=== PATIENT | male | born 1970 | race Caucasian/White ===

== ENCOUNTER 2017-07-14 11:39 | Inpatient (IN) | payer BC ==
[2017-07-14] MEDS ORDERED: SODIUM CHLORIDE 0.9% 1,000 ML IV STA (11:50)
--- NOTE | 2017-07-14 11:55 | ED ---
General Adult HPI - General Chief complaint: Abdominal Pain Stated complaint: poss bile duct problem Time Seen by Provider: 07/14/17 11:45 Source: patient, RN notes reviewed Mode of arrival: ambulatory Limitations: no limitations - History of Present Illness Initial comments: Patient for 46-year-old male who presents emergency room today with chief complaint of a possible bile duct junction. He states he saw Dr. Luciano today was advised to come the emergency room for further evaluation and imaging. Patient states that he has had some symptoms of pain since his surgery last June. States seems to be happening more often recently. States symptoms come and go. She states she has noticed that he appears jaundiced. Patient denies any other complaints or associated symptoms. Patient denies any recent fever, chills, shortness of breath, chest pain, back pain, vomiting, numbness or tingling, dysuria or hematuria, constipation or diarrhea, headaches or visual changes, or any other complaints. - Related Data Home Medications Medication Instructions Recorded Confirmed Levothyroxine Sodium [Synthroid] 100 mcg PO DAILY 07/14/17 07/14/17 Allergies Allergy/AdvReac Type Severity Reaction Status Date / Time No Known Allergies Allergy Verified 07/14/17 11:50 Review of Systems ROS Statement: Those systems with pertinent positive or pertinent negative responses have been documented in the HPI. ROS Other: All systems not noted in ROS Statement are negative. Past Medical History Past Medical History: Thyroid Disorder History of Any Multi-Drug Resistant Organisms: None Reported Past Surgical History: Cholecystectomy Additional Past Surgical History / Comment(s): benign tumor removed from neck Past Psychological History: No Psychological Hx Reported Smoking Status: Never smoker Past Alcohol Use History: None Reported Past Drug Use History: None Reported General Exam - General Exam Comments Initial Comments: General: The patient is awake and alert, in no distress, and does not appear acutely ill. Eye: Pupils are equal, round and reactive to light, extra-ocular movements are intact. No nystagmus. There is normal conjunctiva bilaterally. No signs of icterus. Ears, nose, mouth and throat: There are moist mucous membranes and no oral lesions. Neck: The neck is supple, there is no tenderness or JVD. Cardiovascular: There is a regular rate and rhythm. No murmur, rub or gallop is appreciated. Respiratory: Lungs are clear to auscultation, respirations are non-labored, breath sounds are equal. No wheezes, stridor, rales, or rhonchi. Gastrointestinal: Soft, non-distended, non-tender abdomen without masses or organomegaly noted. There is no rebound or guarding present. No CVA tenderness. Bowel sounds are unremarkable. Musculoskeletal: Normal ROM, no tenderness. Strength 5/5. Sensation intact. Pulses equal bilaterally 2+. Neurological: A&O x 3. CN II-XII intact, There are no obvious motor or sensory deficits. Coordination appears grossly intact. Speech is normal. Skin: Skin is warm and dry and no rashes or lesions are noted. Psychiatric: Cooperative, appropriate mood & affect, normal judgment. Limitations: no limitations Course Vital Signs 07/14/17 07/14/17 11:41 13:08 Temperature 97.1 F L 97.6 F Pulse Rate 56 L 60 Respiratory 18 16 Rate Blood Pressure 137/88 155/97 O2 Sat by Pulse 98 96 Oximetry Medical Decision Making - Medical Decision Making Patient's a urine emergency room by nurse practitioner for Dr. Luciano. They recommend admitting patient and having ERCP performed tomorrow. Patient's labs been reviewed elevated liver enzymes along with alk phos and bilirubin. Patient currently comfortable in the room. Patient will be admitted. - Lab Data Result diagrams: 07/14/17 12:10 07/14/17 12:10 Lab Results 07/14/17 07/14/17 07/14/17 Range/Units 12:10 12:10 12:10 WBC 4.4 (3.8-10.6) k/uL RBC 4.88 (4.30-5.90) m/uL Hgb 14.6 (13.0-17.5) gm/dL Hct 44.4 (39.0-53.0) % MCV 91.1 (80.0-100.0) fL MCH 29.9 (25.0-35.0) pg MCHC 32.9 (31.0-37.0) g/dL RDW 15.1 (11.5-15.5) % Plt Count 223 (150-450) k/uL Neutrophils % 59 % Lymphocytes % 25 % Monocytes % 8 % Eosinophils % 4 % Basophils % 1 % Neutrophils # 2.6 (1.3-7.7) k/uL Lymphocytes # 1.1 (1.0-4.8) k/uL Monocytes # 0.3 (0-1.0) k/uL Eosinophils # 0.2 (0-0.7) k/uL Basophils # 0.0 (0-0.2) k/uL PT 9.4 (9.0-12.0) sec INR 0.9 (<1.2) APTT 24.3 (22.0-30.0) sec Sodium 141 (137-145) mmol/L Potassium 3.6 (3.5-5.1) mmol/L Chloride 107 (98-107) mmol/L Carbon Dioxide 19 L (22-30) mmol/L Anion Gap 15 mmol/L BUN 15 (9-20) mg/dL Creatinine 0.88 (0.66-1.25) mg/dL Est GFR (MDRD) Af Amer >60 (>60 ml/min/1.73 sqM) Est GFR (MDRD) Non-Af >60 (>60 ml/min/1.73 sqM) Glucose 117 H (74-99) mg/dL Calcium 9.2 (8.4-10.2) mg/dL Total Bilirubin 6.4 H (0.2-1.3) mg/dL AST 203 H (17-59) U/L ALT 493 H (21-72) U/L Alkaline Phosphatase 194 H (38-126) U/L Total Protein 7.6 (6.3-8.2) g/dL Albumin 4.3 (3.5-5.0) g/dL Amylase 60 (30-110) U/L Lipase 80 (23-300) U/L Urine Color Urine Appearance (Clear) Urine pH (5.0-8.0) Ur Specific [place] (1.001-1.035) Urine Protein (Negative) Urine Glucose (UA) (Negative) Urine Ketones (Negative) Urine Blood (Negative) Urine Nitrite (Negative) Urine Bilirubin (Negative) Urine Urobilinogen (<2.0) mg/dL Ur Leukocyte Esterase (Negative) Urine RBC (0-5) /hpf Urine Bacteria (None) /hpf Urine Mucus (None) /hpf 07/14/17 Range/Units 12:10 WBC (3.8-10.6) k/uL RBC (4.30-5.90) m/uL Hgb (13.0-17.5) gm/dL Hct (39.0-53.0) % MCV (80.0-100.0) fL MCH (25.0-35.0) pg MCHC (31.0-37.0) g/dL RDW (11.5-15.5) % Plt Count (150-450) k/uL Neutrophils % % Lymphocytes % % Monocytes % % Eosinophils % % Basophils % % Neutrophils # (1.3-7.7) k/uL Lymphocytes # (1.0-4.8) k/uL Monocytes # (0-1.0) k/uL Eosinophils # (0-0.7) k/uL Basophils # (0-0.2) k/uL PT (9.0-12.0) sec INR (<1.2) APTT (22.0-30.0) sec Sodium (137-145) mmol/L Potassium (3.5-5.1) mmol/L Chloride (98-107) mmol/L Carbon Dioxide (22-30) mmol/L Anion Gap mmol/L BUN (9-20) mg/dL Creatinine (0.66-1.25) mg/dL Est GFR (MDRD) Af Amer (>60 ml/min/1.73 sqM) Est GFR (MDRD) Non-Af (>60 ml/min/1.73 sqM) Glucose (74-99) mg/dL Calcium (8.4-10.2) mg/dL Total Bilirubin (0.2-1.3) mg/dL AST (17-59) U/L ALT (21-72) U/L Alkaline Phosphatase (38-126) U/L Total Protein (6.3-8.2) g/dL Albumin (3.5-5.0) g/dL Amylase (30-110) U/L Lipase (23-300) U/L Urine Color Yellow Urine Appearance Clear (Clear) Urine pH 6.0 (5.0-8.0) Ur Specific [place] 1.005 (1.001-1.035) Urine Protein Negative (Negative) Urine Glucose (UA) Negative (Negative) Urine Ketones Negative (Negative) Urine Blood Trace H (Negative) Urine Nitrite Negative (Negative) Urine Bilirubin 1+ H (Negative) Urine Urobilinogen <2.0 (<2.0) mg/dL Ur Leukocyte Esterase Negative (Negative) Urine RBC 1 (0-5) /hpf Urine Bacteria Rare H (None) /hpf Urine Mucus Rare H (None) /hpf Disposition Clinical Impression: Obstructive jaundice Disposition: ADMITTED IP TO THIS HOSP Condition: Stable Referrals: Johnathan Hinton MD [Primary Care Provider] - 1-2 days Time of Disposition: 13:27
[2017-07-14 12:28] LABS: Appearance,Urine Clear (Clear); Bacteria,Urine Rare /hpf; Bilirubin,Urine 1+ (Negative); Glucose,Urine (UA) Negative (Negative); Ketones,Urine Negative (Negative); Leukocyte Esterase,Urine Negative (Negative); Mucus,Urine Rare /hpf; Nitrite,Urine Negative (Negative); Particle Count 659; Protein,Urine Negative (Negative); RBC,Urine 1 /hpf (0-5); Specific Gravity,Urine 1.005 (1.001-1.035); UA Billing (MACRO vs. MICRO) MICRO; Urobilinogen,Urine <2.0 mg/dL (<2.0)
--- NOTE | 2017-07-14 12:29 | P.CONS ---
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 Postcholecystectomy had several episodes at home where he has had intermittent abdominal pain bloatedness without jaundice. About a week ago developed right upper quadrant abdominal pain with bloatedness darker urine and acholic stools. 4 days ago his coworkers noticed he was more yellow in appearance. He was evaluated at [facility] earlier this week secondary to abdominal pain and elevated liver enzymes. Reported ultrasound was unremarkable and computed tomography scan showed mild biliary ductal dilatation. He was discharged with recommendations to follow up in GI office. He was seen in the GI office this morning by our physician physician assistant. Patient is visibly jaundice sent to the emergency room for further evaluation. Presently there are no labs to review however it has been reported by the GI office PA his total bilirubin was in the 6 range or to discharge from [place]. No history of known liver disorders. No history of hepatitis intravenous drug abuse or alcoholism. No changes in medications. Presently he is without abdominal pain but visibly jaundice. Review of Systems Constitutional: Denies fever, chills, sweats, weight gain, or loss. HEENT: Negative for migraines, blurred vision or loss, earaches, drainage, tinnitus, oral mucosal lesions, dysphagia, or odynophagia. Cardiac: Negative for chest pain, arrhythmias, or palpitation. Respiratory: Negative for shortness of breath, hemoptysis, cough, or sputum production. Gastrointestinal: See HPI for pertinent findings. Genitourinary: Negative for hematuria, urgency, frequency, polyuria, dysuria, or penile discharge. Musculoskeletal: Negative for muscle aches, swelling, arthritis, and arthralgias. Neurologic: Negative for stroke or TIA. Endocrine: Hypothyroidism. Skin: Negative for rash or itching. Psychiatric: Negative history for depression and anxiety All systems: negative (See HPI) Past Medical History Past Medical History: Thyroid Disorder History of Any Multi-Drug Resistant Organisms: None Reported Past Surgical History: Cholecystectomy Additional Past Surgical History / Comment(s): benign tumor removed from neck Past Psychological History: No Psychological Hx Reported Smoking Status: Never smoker Past Alcohol Use History: None Reported Past Drug Use History: None Reported Medications and Allergies Home Medications Medication Instructions Recorded Confirmed Type Levothyroxine Sodium [Synthroid] 100 mcg PO DAILY 07/14/17 07/14/17 History Allergies Allergy/AdvReac Type Severity Reaction Status Date / Time No Known Allergies Allergy Verified 07/14/17 11:50 Physical Exam Vitals: Vital Signs Temp Pulse Resp BP Pulse Ox 07/14/17 11:41 97.1 F L 56 L 18 137/88 98 Intake and Output 07/13/17 07/14/17 07/14/17 22:59 06:59 14:59 Intake Total 1000 Balance 1000 Intake: IV 1000 Invasive Line 1 1000 Other: Weight 97.976 kg Patient Weight 07/15/17 06:59 Weight 97.976 kg General appearance: The patient is alert, oriented, in no acute distress. Visibly jaundice HET: Head is normocephalic and atraumatic. Pupils are equal and reactive. Sclerae icterus. Oropharynx is clear without lesions. Neck: Supple without lymphadenopathy. Trachea midline. Heart: S1 S2. Regular rate and rhythm. Lungs: No crackles or wheezes are heard. Abdomen: Soft, nontender, nondistended with bowel sounds. No peritoneal signs. No palpable organomegaly or masses. Extremities: Normal skin color and turgor. No cyanosis, rash, ulceration, clubbing, or edema. Radial and pedal pulses are 2/4 bilaterally. Neurological: No focal deficits. Strength and sensation are grossly intact. Assessment and Plan (1) Obstructive jaundice Narrative/Plan: Suspect choledocholithiasis with history of cholecystectomy for cholelithiasis a year ago with new onset of jaundice right upper quadrant abdominal pain elevated liver enzymes and CT imaging reported mild biliary ductal dilatation. Status: Acute Plan: 1. ERCP scheduled tomorrow. 2. Full liquid diet tonight followed by NPO after midnight. 3. IV hydration. 4. Hepatitis panel. PT/INR. Baseline CMP/CBC. The applied science and technologies dean has discussed the risks, benefits and alternative therapies for the above-mentioned procedure and for both sedation/analgesia as well as necessary blood product administration, if indicated, as they pertain to this patient. The patient has indicated understanding and acceptance of the risks and procedures discussed. Thank you for this kind referral and the opportunity to participate in the care of your patient. This consultation was discussed with Dr. López. The impression and plan of care have been directed as dictated.
[2017-07-14 12:31] LABS: ALT 493 U/L (21-72); AST 203 U/L (17-59); Alkaline Phosphatase 194 U/L (38-126); Amylase 60 U/L (30-110); Anion Gap 15 mmol/L; Blood Urea Nitrogen 15 mg/dL (9-20); Calcium 9.2 mg/dL (8.4-10.2); Carbon Dioxide 19 mmol/L (22-30); Chloride 107 mmol/L (98-107); Glucose 117 mg/dL (74-99); Non-African American GFR(MDRD) >60 (>60 ml/min/1.73 sqM); Potassium 3.6 mmol/L (3.5-5.1); Sodium 141 mmol/L (137-145); Total Bilirubin 6.4 mg/dL (0.2-1.3); Total Protein 7.6 g/dL (6.3-8.2)
[2017-07-14 12:41] LABS: Basophils % (A) 1 %; CH 30.9; CHCM 34.2; Eosinophils # (A) 0.2 k/uL (0-0.7); Eosinophils % (A) 4 %; HCT 44.4 % (39.0-53.0); HDW 2.76; HGB 14.6 gm/dL (13.0-17.5); INR 0.9 (<1.2); Luc # (Auto) 0.13; Luc % (Auto) 3; Lymphocytes # (A) 1.1 k/uL (1.0-4.8); Lymphocytes % (A) 25 %; MCH 29.9 pg (25.0-35.0); MCHC 32.9 g/dL (31.0-37.0); MCV 91.1 fL (80.0-100.0); Mean Platelet Volume 7.3; Monocytes # (A) 0.3 k/uL (0-1.0); Monocytes % (A) 8 %; Neutrophils # (A) 2.6 k/uL (1.3-7.7); Neutrophils % (A) 59 %; Partial Thromboplastin Time 24.3 sec (22.0-30.0); Prothrombin Time 9.4 sec (9.0-12.0); RBC 4.88 m/uL (4.30-5.90); RDW 15.1 % (11.5-15.5); WBC 4.4 k/uL (3.8-10.6); WBC (Perox) 4.37
[2017-07-14 13:09] VITALS: RESP 16
[2017-07-14] MEDS ORDERED: HYDROmorphone 1 MG/ML 1 ML SYRINGE IV PRN (13:27)
[2017-07-14] MEDS ORDERED: ONDANSETRON 4 MG/2 ML VIAL IVP PRN (13:27)
[2017-07-14] MEDS ORDERED: NALOXONE 0.4 MG/ML 1 ML VIAL IV PRN (13:27)
[2017-07-14] MEDS ORDERED: ACETAMINOPHEN TAB 325 MG TAB PO PRN (13:27)
[2017-07-14] MEDS ORDERED: HYDROcodone/APAP 5-325MG 1 EACH TAB PO PRN (13:27)
[2017-07-14 14:24] VITALS: BMI 40.8
--- NOTE | 2017-07-14 22:07 | P.HPIM ---
History of Present Illness H&P Date: 07/14/17 Chief Complaint: right upper quadrant pain, jaundiced This is a 46-year-old male patient of Dr. Johnathan Hinton with chronic stable medical conditions that include GERD, osteoarthritis, thyroid disease, who presented to the emergency department after being seen in the office by Dr. Luciano and his PA for abdominal pain and yellowing of the skin. Symptoms began about a week ago developed right upper quadrant pain with bloatedness dark urine and acholic stools. About 4 days ago his coworkers had noticed he became was even more yellow in appearance. Went to [facility] with complaints of abdominal pain and elevated liver enzymes, ultrasound was unremarkable and computed tomography scan showed mild biliary duct dilatation. Patient was sent home with recommendations to follow up in the GI office. Patient's history is negative for liver disease, hepatitis, IV drug abuse, alcoholism. No recent medication changes or additions. 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 History of Any Multi-Drug Resistant Organisms: None Reported Past Surgical History: Cholecystectomy Additional Past Surgical History / Comment(s): 07/2016 cholecystectomy, benign tumor removed from neck at age 11 yrs. Past Anesthesia/Blood Transfusion Reactions: No Reported Reaction Past Psychological History: No Psychological Hx Reported Additional Psychological History / Comment(s): Pt resides alone. He is independent. Smoking Status: Never smoker Past Alcohol Use History: None Reported Past Drug Use History: None Reported - Past Family History Father Family Medical History: Myocardial Infarction ([place]) Additional Family Medical History / Comment(s): Father of a [place] at the age of 50 yrs. Mother Additional Family Medical History / Comment(s): Mother has "heart issues and gallbladder disease." She is 85 yrs old. Medications and Allergies Home Medications Medication Instructions Recorded Confirmed Type Levothyroxine Sodium [Synthroid] 100 mcg PO DAILY 07/14/17 07/14/17 History Allergies Allergy/AdvReac Type Severity Reaction Status Date / Time No Known Allergies Allergy Verified 07/14/17 11:50 Physical Exam Vitals: Vital Signs Temp Pulse Pulse Resp BP BP Pulse Ox 07/14/17 19:30 98.3 F 53 L 16 134/78 95 07/14/17 15:00 97.5 F L 59 L 16 130/78 99 07/14/17 13:48 97.5 F L 55 L 16 150/85 99 07/14/17 13:08 97.6 F 60 16 155/97 96 07/14/17 11:41 97.1 F L 56 L 18 137/88 98 Intake and Output 07/14/17 07/14/17 07/14/17 06:59 14:59 22:59 Intake Total 1000 Balance 1000 Intake: IV 1000 Invasive Line 1 1000 Other: Weight 97.976 kg Patient Weight 07/15/17 06:59 Weight 97.976 kg VITAL SIGNS: [98.3, pulse 53, respirations 16, blood pressure 134/78, oxygen saturation 95% on room air. BMI 40.8 kg/m] GENERAL: [Average built, sitting up, comfortable]. EYES: [Pupils equal. Conjunctiva icteric l. HEENT: [External appearance of nose and ears normal, oral cavity grossly normal] . NECK: [JVD not raised; masses not palpable]. HEART: [First and second heart sounds are normal; no edema]. LUNGS:[ Respiratory rate normal; clear to auscultation]. ABDOMEN: [Soft, bloated appearing nontender, liver spleen not palpable, no masses palpable]. LYMPHATICS: [No lymph nodes palpable in the axilla and neck]. PSYCH: [Alert and oriented x3; mood and affect sudarshan]l. INTEGUMENT: Widespread yellowing of most all skin surfaces NEUROLOGICAL: [Cranial nerves grossly intact; no facial asymmetry, power and sensation grossly intact]. Results CBC & Chem 7: 07/14/17 12:10 07/14/17 12:10 Labs: Abnormal Lab Results - Last 24 Hours (Table) 07/14/17 07/14/17 Range/Units 12:10 12:10 Carbon Dioxide 19 L (22-30) mmol/L Glucose 117 H (74-99) mg/dL Total Bilirubin 6.4 H (0.2-1.3) mg/dL AST 203 H (17-59) U/L ALT 493 H (21-72) U/L Alkaline Phosphatase 194 H (38-126) U/L Urine Blood Trace H (Negative) Urine Bilirubin 1+ H (Negative) Urine Bacteria Rare H (None) /hpf Urine Mucus Rare H (None) /hpf Thrombosis Risk Factor Assmnt - Choose All That Apply Any of the Below Risk Factors Present?: Yes Each Factor Represents 1 point: Age 41-60 years, Obesity (BMI >25) Other Risk Factors: No Other congenital or acquired thrombophilia - If yes, enter type in comment: No Thrombosis Risk Factor Assessment Total Risk Factor Score: 2 Thrombosis Risk Factor Assessment Level: Low Risk Assessment and Plan Plan: ASSESSMENT: -Possible choledocholithiasis in a patient with a history of cholecystectomy for cholelithiasis about a year ago -Hyperbilirubinemia likely due to cholelithiasis -New-onset jaundice in a patient with history of cholelithiasis, no history of any type liver disease. -Osteoarthritis in the right wrist -GERD -Thyroid disorder PLAN: Home meds reordered IV fluids ordered GI consulted, nothing by mouth after midnight ERCP scheduled for tomorrow. Plan of care discussed with patient the bedside he is in agreement, we'll continue to follow closely. ROOM SERVICE CLERK STATEMENT: Patient was seen and examined by nurse practitioner Katalina Herbert and all elements of the case discussed with attending Dr. Koo.
[2017-07-14] MEDS: diphenhydrAMINE 2% CREAM 28.4 GM TUBE TOPICAL SCH (22:37)
[2017-07-15] MEDS ORDERED: LEVOTHYROXINE 100 MCG TAB PO SCH (06:30)
[2017-07-15 08:25] LABS: Basophils # (A) 0.1 k/uL (0-0.2); Basophils % (A) 1 %; CH 29.6; CHCM 31.6; Eosinophils # (A) 0.2 k/uL (0-0.7); Eosinophils % (A) 5 %; HCT 45.8 % (39.0-53.0); HDW 2.67; HGB 14.4 gm/dL (13.0-17.5); Luc # (Auto) 0.15; Luc % (Auto) 3; Lymphocytes # (A) 1.2 k/uL (1.0-4.8); Lymphocytes % (A) 25 %; MCH 29.5 pg (25.0-35.0); MCHC 31.4 g/dL (31.0-37.0); MCV 94.2 fL (80.0-100.0); Mean Platelet Volume 6.7; Monocytes # (A) 0.3 k/uL (0-1.0); Monocytes % (A) 7 %; Neutrophils # (A) 2.8 k/uL (1.3-7.7); Neutrophils % (A) 59 %; RBC 4.86 m/uL (4.30-5.90); RDW 14.1 % (11.5-15.5); WBC 4.8 k/uL (3.8-10.6); WBC (Perox) 4.94
[2017-07-15 08:42] LABS: ALT 542 U/L (21-72); AST 318 U/L (17-59); Alkaline Phosphatase 219 U/L (38-126); Anion Gap 12 mmol/L; Blood Urea Nitrogen 10 mg/dL (9-20); Calcium 9.4 mg/dL (8.4-10.2); Carbon Dioxide 22 mmol/L (22-30); Chloride 107 mmol/L (98-107); Glucose 92 mg/dL (74-99); Non-African American GFR(MDRD) >60 (>60 ml/min/1.73 sqM); Potassium 4.3 mmol/L (3.5-5.1); Sodium 141 mmol/L (137-145); Total Bilirubin 8.3 mg/dL (0.2-1.3); Total Protein 7.4 g/dL (6.3-8.2)
[2017-07-15] MEDS ORDERED: INDOMETHACIN 50MG SUPPOSITORY RECTAL ONE (09:00)
[2017-07-15] MEDS ORDERED: LEVOFLOXACIN 500MG-D5W PMX 500 MG in DEXTROSE/WATER 1 100ML.BAG IVPB ONE (09:00)
[2017-07-15 10:34] VITALS: BP 128/85; PULSE 52; TEMP 97.8
[2017-07-15] MEDS: diphenhydrAMINE 2% CREAM 28.4 GM TUBE TOPICAL SCH ×2 (13:17→17:26)
[2017-07-15] MEDS ORDERED: IV FLUID CONTINUATION 600 ML IV ONE (13:38)
[2017-07-15] MEDS ORDERED: GLYCOPYRROLATE 0.2 MG/ML 2 ML VIAL ONE (13:40)
[2017-07-15] MEDS ORDERED: LIDOCAINE 1% INJ 10MG/ML (20 ML MDV) ONE (13:40)
[2017-07-15] MEDS ORDERED: MIDAZOLAM 2 MG/2 ML VIAL ONE (13:40)
[2017-07-15] MEDS ORDERED: fentaNYL (PF) 50 MCG/ML 2 ML AMP ONE (13:40)
[2017-07-15] MEDS ORDERED: GLUCAGON 1 MG/ML VIAL ONE (13:40)
[2017-07-15] MEDS ORDERED: PROPOFOL 10 MG/ML 20 ML VIAL IV ONE (13:40)
[2017-07-15] MEDS ORDERED: KETAMINE 10 MG/ML 20 ML VIAL ONE (13:40)
--- NOTE | 2017-07-15 14:50 | P.PCN ---
Date of Procedure: 07/15/17 Procedure(s) Performed: Brief history: Patient is a 46 year-old pleasant white male scheduled for an ERCP as part of evaluation of abdominal pain and elevated serum transaminases, jaundice for the last 7 days' duration. He was admitted to [facility] and was noted to have bilirubin of 6 with elevated serum transaminases and a CT of the abdomen done 2 days ago showed evidence of mild biliary ductal dilation. He is status post gallbladder surgery 1 year ago for symptomatically gallstones. Because of the clinical suspicion for CBD stones he scheduled for an ERCP today. Procedure performed: Attempted ERCP, normal pancreatogram Preoperative diagnoses: Obstructive jaundice, elevated LFTs and right upper quadrant abdominal pain of 1 week duration IV sedation per anesthesia: Procedure: After informed consent was obtained from the patient and after the risks benefits and complications including bleeding perforation and pancreatitis explained in detail the patient was brought into the endoscopy unit. The patient was placed in prone position and IV conscious sedation was administered by anesthesia under continuous monitoring. The Olympus side-viewing duodenoscope was then inserted into the mouth and esophagus intubated without any difficulty. The scope was gradually advanced into the stomach and duodenum. The major papilla was identified without any difficulty. Initial cannulation resulted in opacification of the pancreatic duct that appeared normal. Subsequently despite multiple times I was not able to cannulate the common bile duct. I used a guidewire technique as well as an autotome and despite this I was not able to cannulate the common bile duct. At this time I decided to terminate the procedure. Patient tolerated the procedure well. Impression: 1. Normal-appearing pancreatic duct 2. Unsuccessful cannulation of the common bile duct despite multiple attempts and using guidewire technique. Recommendations: The findings of this examination were discussed with the patient as well as a family. Since ERCP could not be accomplished, I discussed with the patient's family and this time will transfer him to a tertiary center.
[2017-07-15] MEDS ORDERED: IOHEXOL 300 MG/ML 50 ML BOTTLE MISCELLANE ONE (14:59)
--- NOTE | 2017-07-15 15:06 | P.PN ---
Progress Note - Text DATE OF SERVICE: 07/15/2017 PRESENTING COMPLAINT: Right upper quadrant pain, jaundice HISTORY OF PRESENT ILLNESS: 46-year-old male who presented after being seen in the office by Dr. Boland and his PA for abdominal pain and yellowing of the skin. Symptoms began about a week ago along with right upper quadrant pain and bloatedness, dark urine, acholic stools. A few days ago his coworkers noticed his skin had become even more yellow in appearance. Evaluated at an outside hospital computed tomography scan showed mild biliary duct dilatation, sent home with recommendations to follow-up in GI office. INTERVAL HISTORY: 07/15/2017: Patient sitting up in bed, anxious appearing, awaiting his ERCP. REVIEW OF SYSTEMS: Done for constitutional ,cardiovascular, GI, pulmonary with relevant findings as above. CURRENT MEDICATIONS [place], Dilaudid, Synthroid, PHYSICAL EXAM VITAL SIGNS: Temperature 97.8, pulse 52, respiratory rate 16, blood pressure 128/85, oxygen saturation 96% on room air. GENERAL APPEARANCE: . Sitting up in bed, appears anxious. EYES: Pupils equal. Conjunctiva icteric NECK: JVD not raised. Mass not palpable. RESPIRATORY: Respiratory effort normal. Lungs clear to auscultation. CARDIOVASCULAR: First and second sounds normal. No edema. ABDOMEN: Soft. Liver and spleen not palpable. Right upper quadrant tenderness. No mass palpable. PSYCHIATRY: Alert and oriented x3. Mood and affect INTEGUMENT: Yellowing of the skin INVESTIGATIONS: Total bilirubin 8.3, AST 18, ALTs 542, alkaline phosphatase 219. ERCP: Normal-appearing pancreatic duct, unsuccessful cannulation of the common bile duct despite multiple attempts using guidewire technique. ASSESSMENT: -Possible choledocholithiasis in a patient with a history of cholecystectomy for cholelithiasis about a year ago -Hyperbilirubinemia likely due to cholelithiasis -New-onset jaundice in a patient with history of cholelithiasis, no history of any type liver disease. -Osteoarthritis in the right wrist -GERD -Thyroid disorder PLAN: Liver enzymes continue to climb, ERCP unsuccessful today, GI wishes for the patient to be transferred to tertiary care center discussed with the patient and family and they're in agreement. COOK MANAGER statement: Patient was seen and examined by nurse practitioner Katalina Herbert and all elements of the case discussed with attending Dr. Koo
--- NOTE | 2017-07-15 17:52 | DS ---
DISCHARGE SUMMARY DATE OF ADMISSION: 07/14/2017. DATE OF DISCHARGE: 07/15/2017 FINAL DIAGNOSES: 1. Suspected common bile duct stone in the remnant causing acute presentation. 2. Gastroesophageal reflux disease. 3. Hypothyroidism. 4. Hyperbilirubinemia. HOSPITAL COURSE: This patient had prior cholecystectomy presented with increasing abdominal pain was found to have a bilirubin of 6.4. Ultrasound done at outside facility showed dilated common bile duct. Dr. López attempted ERCP that was unsuccessful. Bilirubin did creep up from 6.4 to 8.3. Hence, patient being transferred to [facility]. I spoke today to the patient and his sister and both are agreeable to same. I also spoke to Dr. López at length. Patient having some nausea. EXAMINATION: On exam, lungs are clear. CARDIOVASCULAR: First and second sounds normal. Some upper abdominal pain. INVESTIGATIONS: Bilirubin 8.3, AST 318. ALT 542. White count was normal. Afebrile. HOME MEDICATIONS: Synthroid 100 mcg a day. DISPOSITION: [address] TRANSFER PROCESS: I spoke to Dr. Larry Bang, Internal Medicine accepting physician at [facility] and patient will be transferred there with a consult to GI and possible surgery. Discharge planning more than 35 minutes MMODL / IJN: [id number] /
[2017-07-15] MEDS ORDERED: ENOXAPARIN 40 MG/0.4 ML SYRINGE SQ SCH (21:00)
== END 2017-07-15 18:01 | disposition short-term general hospital (02) | DRG 446 ==
LOC: EC 11:39 → 3SUR 13:37
PROVIDERS: ADMIT Hospitalist; ATTEND Hospitalist
PROC: BF181ZZ Fluoroscopy of Pancreatic Ducts using Low Osmolar Contrast (ICD-10-PCS; principal; 2017-07-15 15:00)
PROC: 0FJD8ZZ Inspection of Pancreatic Duct, Via Natural or Artificial Opening Endoscopic (ICD-10-PCS; principal; 2017-07-15 15:00)
DX: K80.50 Calculus of bile duct without cholangitis or cholecystitis without obstruction (principal); E03.9 Hypothyroidism, unspecified; K21.9 Gastro-esophageal reflux disease without esophagitis; M19.91 Primary osteoarthritis, unspecified site; Z90.49 Acquired absence of other specified parts of digestive tract; Z79.899 Other long term (current) drug therapy
CPT/HCPCS: 36415; 43260; 80053; 80074; 81001; 82150; 83690; 85025; 85610; 85730; 96360; 96361; 99285

== ENCOUNTER 2020-04-05 15:59 | Emergency (ER) | payer BC ==
[2020-04-05 16:07] VITALS: TEMP 98.2
[2020-04-05] MEDS ORDERED: RX INFO: IV CONTRAST WAS GIVEN 1 EACH MISC MISCELLANE PRN (16:26)
[2020-04-05] MEDS ORDERED: ASPIRIN 81 MG PO STA (16:26)
[2020-04-05 16:39] LABS: Basophils % (A) 0 %; Eosinophils # (A) 0.3 k/uL (0-0.7); Eosinophils % (A) 3 %; HCT 43.3 % (39.0-53.0); HGB 14.6 gm/dL (13.0-17.5); Lymphocytes # (A) 1.4 k/uL (1.0-4.8); Lymphocytes % (A) 19 %; MCH 29.5 pg (25.0-35.0); MCHC 33.7 g/dL (31.0-37.0); MCV 87.6 fL (80.0-100.0); Mean Platelet Volume 6.7; Monocytes # (A) 0.5 k/uL (0-1.0); Monocytes % (A) 6 %; Neutrophils # (A) 5.3 k/uL (1.3-7.7); Neutrophils % (A) 69 %; Platelet Count 253 k/uL (150-450); RBC 4.94 m/uL (4.30-5.90); RDW 12.6 % (11.5-15.5); WBC 7.6 k/uL (3.8-10.6)
[2020-04-05 16:50] LABS: INR 0.9 (<1.2); Prothrombin Time 9.5 sec (9.0-12.0)
[2020-04-05 16:51] LABS: ALT 22 U/L (4-49); AST 28 U/L (17-59); African American GFR (CKD) >90 (>60 ml/min/1.73 sqM); Albumin 4.8 g/dL (3.5-5.0); Alkaline Phosphatase 70 U/L (38-126); Anion Gap 12 mmol/L; Blood Urea Nitrogen 19 mg/dL (9-20); Calcium 9.3 mg/dL (8.4-10.2); Carbon Dioxide 20 mmol/L (22-30); Chloride 106 mmol/L (98-107); Glucose 118 mg/dL (74-99); Magnesium 1.9 mg/dL (1.6-2.3); Non-African American GFR(CKD) >90 (>60 ml/min/1.73 sqM); Potassium 4.1 mmol/L (3.5-5.1); Sodium 138 mmol/L (137-145); Total Bilirubin 0.3 mg/dL (0.2-1.3); Total Protein 7.7 g/dL (6.3-8.2)
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
--- NOTE | 2020-04-05 17:34 | CT ---
EXAMINATION TYPE: CT chest w con DATE OF EXAM: 04/05/2020 COMPARISON: None HISTORY: Left sided arm numbness and chest pain. CT DLP: 766.5 mGycm Automated exposure control for dose reduction was used. CONTRAST: Performed with IV Contrast, patient injected with 100 mL of Isovue 300. Images were obtained from the thoracic inlet to the diaphragm with IV contrast. There is no pleural effusion. Heart size is normal. There is no pericardial effusion. The lungs are c lear of infiltrate. There is no evidence of a pulmonary mass. There are no hilar masses. There is no mediastinal adenopathy. Thoracic aorta appears normal. Thoracic spine is intact. Sternum is intact. There is no evidence of a fracture. Upper abdominal soft tissues are intact. IMPRESSION: Negative CT scan of the chest.
[2020-04-05 17:39] VITALS: BP 141/98; PULSE 70; RESP 16
--- NOTE | 2020-04-05 17:43 | CT ---
EXAMINATION TYPE: CT brain wo con DATE OF EXAM: 04/05/2020 COMPARISON: None HISTORY: Left sided arm numbness and chest pain. CT DLP: 1103 mGycm Automated exposure control for dose reduction was used. Ventricles have normal size. There is no mass effect nor midline shift. There is no sign of intracran ial hemorrhage. There is prominent sulcus involving the right frontal lobe at the frontal lobe convexity. This could be focal encephalomalacia and old infarct. There is apparent old right frontal craniotomy defect.. Th ere is mucosal thickening in the sphenoid sinus. I see no focal bone destruction. IMPRESSION: Right frontal lobe hypodensity could relate to small old cortical infarct or posttraumatic encephalom alacia. No acute intracranial abnormality.
== END 2020-04-05 19:04 | disposition left against medical advice (07) ==
LOC: EC 15:59
DX: R07.9 Chest pain, unspecified (principal); R27.0 Ataxia, unspecified; R10.13 Epigastric pain; R20.0 Anesthesia of skin; E07.9 Disorder of thyroid, unspecified; Z79.890 Hormone replacement therapy; Z82.49 Family history of ischemic heart disease and other diseases of the circulatory system; Z90.49 Acquired absence of other specified parts of digestive tract; Z53.20 Procedure and treatment not carried out because of patient's decision for unspecified reasons
CPT/HCPCS: 36415; 83880; 80053; 83690; 83735; 84484; 85025; 85610; 85730; 70450; 71260; 99285; Q9967

== ENCOUNTER → 2020-08-02 | Outpatient (CLI) | payer OTHER ==
--- NOTE | 2020-08-02 16:53 | MR ---
EXAMINATION TYPE: MR cervical spine wo con DATE OF EXAM: 08/02/2020 COMPARISON: None HISTORY: Cervicalgia, disc degeneration Multiplanar multiecho imaging of the cervical spine was performed with no contrast. Normal alignment. There is narrowing of disc spaces throughout the cervical spine with some decreased signal in the disks. There is posterior small disc herniation at C3-4 with some mild narrowing of th e spinal canal. Canal measures 6.5 mm. I see no edema in the cord. The brainstem is intact. There is broad-based C6-7 posterior disc herniation. This extends slightly to the right side. There is no sign ificant spinal stenosis at C6-7. I see no bony destructive process. There is no cervical paraspinal m ass. Posterior elements are intact. IMPRESSION: Small posterior disc herniation at C3-4 with a mild relative spinal stenosis. Posterior central and right side C6-7 disc herniation without significant spinal stenosis. Degenerati ve disc changes. No fracture seen.
== END | disposition home or self-care (01) ==
LOC: RADMRIMAIN 11:43
PROVIDERS: ATTEND Nurse Practitioner Family
DX: M48.02 Spinal stenosis, cervical region (principal); M50.21 Other cervical disc displacement, high cervical region; M47.812 Spondylosis without myelopathy or radiculopathy, cervical region
CPT/HCPCS: 72141

== ENCOUNTER → 2022-08-09 | Outpatient (CLI) | payer OTHER | END | disposition home or self-care (01) | LOC: LABPAT 10:23 | PROVIDERS: ATTEND Orthopaedic Surgery | DX: Z01.812 Encounter for preprocedural laboratory examination (principal); M47.812 Spondylosis without myelopathy or radiculopathy, cervical region; M48.02 Spinal stenosis, cervical region; Z22.322 Carrier or suspected carrier of Methicillin resistant Staphylococcus aureus | CPT/HCPCS: 87070 ==

== ENCOUNTER 2022-08-17 08:17 | Observation (INO) | payer OTHER ==
[2022-08-16 10:09] VITALS: BMI 35.3
--- NOTE | 2022-08-17 06:11 | P.HPOR ---
History of Present Illness H&P Date: 08/09/22 .D:Date: 08/09/22 : 09:38am .T:Title: [facility] History and Physical Date of :[birth year] Age: 51 year Height: 5'10" Weight: 225 lbs BMI: 32.28 kg/m2 Occupation: Unemployed VAS: 7 CHIEF COMPLAINT: Cervical pain arm pain weakness DOI:None DOS: None Duration of current treatment regiment: 6 months HISTORY: Xrays New xrays taken in office Trauma or injury No Work-Related No Pain description burning, sharp. Location posterior Patient notes that their pain radiates to bilateral upper extremities(R>L) Activity Modification yes Hand Dominance right TREATMENTS COMPLETED: 6 weeks of PT completed? Month and Year of last PT date? 01/2022 Yes How many sessions? 12 Did it help? No Physician recommended home exercise completed? Duration of HEP course: Current yes Patient has trialed the physician directed home exercise program for (without) relief of their symptoms. Medications yes List: None current. Alternative interventions Chiropractic: No Massage therapy: No R.I.C.E: yes , heat and ice without relief Brace: No Injections Yes (I 02/2022) How many? 1 Did they help? No RFA: No SUBJECTIVE: Mr. Buckner returns to the office for a pre-operative recheck of their planned C3-C7 ACDF. Since the time of the last appointment the patient reports no improvements to his symptoms, stating continued cervical pain with bilateral upper extremity radiculopathy. Overall the patient has seen a progressive increase in symptoms since their onset. Mr. Buckner symptoms are exacerbated with anything involving flexion/extension and weightlifting with the upper extremities, due to this they notes that it is increasingly difficult for Mr. Jeremiah hutchinson to complete many of their daily tasks. Patient is having severe sleep disturbances as well due to their ongoing pain and associated symptoms. Regarding treatments, the patient has previously trialed all abovementioned treatment modalities without relief. Patient denies trialing any other modalities at this time. Otherwise the patient denies any f/c/sob/cp, no incision concerns, no bladder or bowel retention/incontinence, no perineal numbness/tingling, and ambulates independently. HPI: Mr. Buckner last returned to the office on 06/17/2022 for an evaluation of their cervical spine. Patient reports a burning, sharp cervical pain ongoing for 3 years that has worsened over the last year with no known injury or trauma to indicate an exact onset of their symptoms. In addition to their cervical pain, they do report that it radiates into the bilateral upper extremities, associated with numbness and tingling through the hands diffusely (right worse than left). Overall the patient has seen a progressive increase in symptoms since their onset. Mr. Buckner symptoms are exacerbated with most daily activities, due to this they notes that it is increasingly difficult for Mr. Buckner to complete many of their daily tasks. Patient is having severe sleep disturbances as well due to their ongoing pain and associated symptoms. Regarding treatments, the patient has previously trialed formal physical therapy, home exercises, heat/ice, and injection all without relief pf his symptoms. Patient denies trialing any other modalities at this time. For their symptoms, the patient denies taking analgesics/anticoagulants/narcotics/JOSE ROBERTO-analogs. Otherwise the patient denies any f/c/sob/cp, no incision concerns, no bladder or bowel retention/incontinence, no perineal numbness/tingling, and ambulates independently. The patients' past social, medical, family, surgical history, as well as review of systems, have been reviewed. Please refer to the Neurosurgery History and Physical form that has been scanned in to our electronic medical record system. 16 points review of systems completed and as stated in HPI, all other systems reviewed are negative. Social History: Reviewed, see appropriate section of the chart for details. P3 Social History: Smoking: former smoker P3 Marijuna daily Alcohol: none P3 Family History: Reviewed, see appropriate section of the chart for details. P2 Past Medical History: Reviewed, see appropriate section of the chart for details. P1 Current Medications: The patient is on no medications PHYSICAL EXAMINATION: General: Awake, alert, appropriate for age, in no acute distress. HEENT: No unusual neck masses around region of lateral neck triangle, thyroid, supraclavicular groove Heart: Regular rate and rhythm, normal S1, S2 and no murmur/gallop. Lungs: Clear to auscultation bilaterally with no use of accessory muscles. Extremities: Skin warm and dry without acute lesions, coloration, temperature, skin intact, no tenderness or erythema Integument: Hairy patches: ABSENT Dorsal skin dimples: ABSENT Cafe au lait spots: ABSENT Surgical incisions: NONE Palpation: Please see Pain drawing on Intake sheet for further detail. Midline spinal tenderness: No E6 Cervical Tenderness: Yes E6 Paralumbar tenderness: No E6 Parathoracic tenderness: No E6 Buttocks tenderness: No E6 Sacroiliac Tenderness: No POSTURAL and MUSCULO-SKELETAL EVALUATION: Coronal Balance: NEUTRAL Recumbent testing: Patient is able to lay flat on back Sagittal Balance: NEUTRAL Shoulder Profile: LEVEL Pelvic Girdle: LEVEL Neck ROM: RESTRICTED Lumbar ROM: RESTRICTED Shoulder ROM: Symmetrical Hip ROM: Symmetrical Knee ROM: Symmetrical Hands: Normal appearance, symmetrical Feet: Normal appearance, Symmetrical VASCULAR STATUS : LEFT RIGHT Wrist Pulses INTACT INTACT Pedal Pulses (Dors. pedis & post.tibialis) INTACT INTACT Color NORMAL NORMAL Edema Absent Absent NEUROLOGIC EXAMINATION: Mental Status:Awake and alert, fully oriented, with normal attention, concentra tion and memory, and fluent, appropriate speech. Cranial Nerves: I: Olfactory not tested. II: Visual acuity normal, no visual field deficit noted with confrontation. III,IV: Normal pupillary reflexes & intact extraocular movements without nystagmus. V,: Intact symmetrical facial sensation. VII: Intact symmetrical facial motor movement VIII: Hearing intact. IX,X: Intact gag, swallow, & normal voice. XI: Sternocleidomastoid, trapezius function intact. XII: Tongue midline with normal movements. L'hermitte's Sign: Negative / absent Spurling'Sign: Absent bilaterally. Cubital percussion test: Absent bilaterally. Hutchison-Tinel sign - Carpal region: Absent bilaterally. Straight Leg Raising: Absent bilaterally. Crossed straight leg raise: negative O8 MOTOR EXAM (0-5/5, N/T) UPPER EXTREMITY Shoulder Abduction Biceps Triceps Wrist Extension Hand Intrinsics Associate Drafter Right 4-/5 5/5 5/5 5/5 4-/5 4-/5 Left 4/5 5/5 5/5 5/5 4/5 4/5 LOWER EXTREMITY Hip Flexion Knee Extension Knee Flexion DF PF EHL FHL Right 5/5 5/5 5/5 5/5 5/5 4+/5 4+/5 Left 5/5 5/5 5/5 5/5 5/5 4+/5 4+/5 REFLEXES(0-4/2, NT)Upper ExtremityLower Extremity Right 2 2 Left 2 2 Pathological Reflexes RIGHT LEFT Hutchison's Absent Absent Clonus Absent Absent Babinski Absent Absent # Indicates mechanical impairment Muscle appearance: Symmetrical, without signs of atrophy or dystrophy. Sensory system (0-4, N/T) Test type RU ARELY RL LL Joint-Position 2 2 2 2 Vibration 2 2 2 2 Pain & LT sense 2 2 2 2 Dermatomal Deficit: None None None None Gait and Functional Evaluation: Ambulatory aids: Independent Romberg's test: positive Toe heel walk / heel-toe walk intact while maintaining satisfactory balance? No Squatting/straightening w/o assistance to a min of 60 degree knee flexion? No Single leg stance: not intact bilaterally Trendelenburg sign negative bilaterally Hand and finger dexterity intact bilaterally? No Disdiadochokinesis examination negative bilaterally? No RADIOGRAPHIC STUDIES: XRay taken on 06/17/22 of Cervical Spine: Images reviewed with pt. Overall flattened cervical alignment with severe spondylotic changes noted C3-7 with disc height loss, anterior osteophyte formation and endplate sclerosis. There are no fractures noted. C0-1 and C1-2 are stable at this time. Subaxial C spine shows some signs of degenerative listhesis at C3-4, no overt instability noted. F/E films shows increased kyphosis. MRI scan from02/25/2022 of Cervical Spine: Images reviewed with the patient demonstrate severe spondylosis from C3-7 with disc dessication and height loss, moderate to severe central and foraminal stenosis from C3-7 due to disc herniations old and new along with disc bulging, spondylotic changes anteriorly and posteriorly with some ligamentous hypertrophy. Benining myelomalacia noted C4-5 and C5-6 which is mild, but due to the severe stenosis in this area could progress. No acute fracture noted. C0-1 and C1-2 are stable. No lesions noted. IMPRESSION: It was my pleasure to have seen and examined Lincoln. I reviewed the patient's clinical syndrome, physical findings, and imaging studies during the appointment today. It is my impression that the patient has a diagnosis of. 1. C3-C7 spondylosis with stenosis 2. Bilateral upper extremity radiculopathy 3. Bilateral upper extremity weakness I outlined the natural course history without intervention and various interventional options. PLAN: Based on my findings I suggest the following course of action: - -I discussed treatment options with the patient, including operative and non-operative options, and they have elected to proceed with the following surgical procedure: cervical (C3-C7) ACDF The indications, risks, benefits, and alternatives to surgery were discussed with the patient at length. Specifically (but not limited to) the risks of infection, stiffness, recurrence of symptoms, need for revision surgery, local numbness, neurovascular injury, and blood clots were discussed. The patient's questions were answered. The decision to proceed was made. Consent will be obtained for the procedure. Advised patient to continue with supplements, health maintenance, and home exercise programs. Patient expressed understanding and will continue with these modalities. Spine Surgery Risk Review Mr. Buckner is presenting for evaluation of cervical pain and bilateral upper extremity radiculopathy. It was my pleasure to have seen and examined Mr. Buckner. In our visit today we have had a chance to go over subjective complaints, physical examination findings and treatments including the natural course history without intervention and various interventional options. The patients imaging demonstrates: XRay taken on 06/17/22 of Cervical Spine: Images reviewed with pt. Overall flattened cervical alignment with severe spondylotic changes noted C3-7 with disc height loss, anterior osteophyte formation and endplate sclerosis. There are no fractures noted. C0-1 and C1-2 are stable at this time. Subaxial C spine shows some signs of degenerative listhesis at C3-4, no overt instability noted. F/E films shows increased kyphosis. MRI scan from02/25/2022 of Cervical Spine: Images reviewed with the patient demonstrate severe spondylosis from C3-7 with disc dessication and height loss, moderate to severe central and foraminal stenosis from C3-7 due to disc herniations old and new along with disc bulging, spondylotic changes anteriorly and posteriorly with some ligamentous hypertrophy. Benining myelomalacia noted C4-5 and C5-6 which is mild, but due to the severe stenosis in this area could progress. No acute fracture noted. C0-1 and C1-2 are stable. No lesions noted. On physical exam, Mr. Buckner demonstrates restricted cervical ROM with bilateral upper extremity radiculopathy and weakness about the hands. I have explained to the patient that as their condition progresses it will cause further neurological deficits and eventual paralysis. Based on the patients imaging, physical exam, and the rapid progression and disabling nature of their symptoms, at this time I recommend surgery in the form or a: cervical (C3-C7) ACDF. I discussed the risk and benefits of this procedure at length with Mr. Buckner. The patient agreed to considered pursuing the procedure abovementioned. Prior to surgery, she should follow up with her PCP (Cardio, ID, IM etc) for clearance. Questions were invited and answered, and the patient wishes to proceed as outlined below. Currently, I am recommendin.cervical (C3-C7) ACDF 2.Follow up with PCP for surgical clearance 3.Review of surgical risks and benefits as well as an educational packet on the proposed surgical procedure. Risks: All surgical procedures come with inherent risks, including those related to positioning, anesthesia, intraoperative findings, and postoperative complications. It is important to understand that surgery does not come with any guarantee of a successful outcome as complications and adverse events are always possible. The patient was given a handout in office today discussing the surgical procedure and risks associated with the intervention, both of which were discussed with the patient. These risks include but are not limited to the following: * Experiencing same, different or even worse symptoms in back, neck, arms, or legs compared to before surgery. Requiring further surgery or other forms of treatment presently or at some time in the future at same or other levels of the intended spine surgery. On an extreme but fortunately relatively rare basis severe complication such as blindness, stroke, heart attack, temporary and/or permanent nerve injury, paralysis, coma, or may occur, sometimes without known explanation. Surgical complications may include but are not limited to risk of infection, fluid accumulation in the surgical dissection site, including a seroma or hematoma, that requires additional surgery, wound drainage, bleeding, new numbness or weakness, vision changes/loss, spinal fluid leakage, non-healing and/or infected incision, headaches, difficulty or inability to swallow, hoarseness, hemopneumothorax, pneumothorax, impotence, retrograde ejaculation, vaginal dryness; injury to nerves, spinal cord, blood vessels, lymphatics or other vital organs (i.e., bowel injury, injury to the great vessels); heterotopic bone formation; complications related to the hardware such as screws, rods, cages including misplaced hardware, device failure, instrumentation at the wrong spine level, hardware fracture/breakage, or hardware loosening; vertebral failure of the spinal column above or below the newly placed hardware; retained surgical instrumentations or devices and the need for further surgery. * Medical risks of the planned spine surgery include but are not limited to generalized Infections to the whole body or local areas outside of the surgical site (sepsis), heart attack, bleeding, anaphylaxis, meningitis, seizure, epilepsy, hearing loss, burn bean, laceration of the head or other areas of the body, bruising, hypersensitivity of the skin, bladder over distension; allergic reaction; shoulder injury related to positioning; fat, blood and air clots to other areas of the body like heart, lungs, brain; failure of internal organs such as lungs, kidneys, liver and excessive bleeding. If blood transfusions are necessary, note that transfusions may cause intolerance reactions such as anaphylaxis or other complex reactions. Despite best efforts, the results of spine surgery might not heal in terms of b one, soft tissues such as skin, fascia, ligaments, and joints. Additionally, in order to achieve best possible results, spine surgery may be carried out beyond the initially planned levels and involve decompression, fusion including insertion of hardware at levels other than the original intended area of surgical interest change some portions of the procedure in order to ensure the best possible outcomes. With spine surgery and spinal fusion, there are different off label uses of instrumentation (devices, implants and hardware) as well as biological substances (bone morphogenic proteins, demineralized bone matrix) as well as using extra bone from allograft sources (i.e. cadaver bone) or autograft (iliac crest bone, ribs, or the spine itself). The patient has been given information about these practices and their inherent risks and benefits. [facility] is an educational center that serves as a training facility for neurosurgical and orthopedic [employer] and Nursing students. Physician assistants are medically trained surgical providers who function in the outpatient, inpatient, and operating room setting under the direct supervision of the attending surgeon. [facility] has multiple operating rooms with single and overlapping rooms running daily. They currently function under the required guidelines as produced by the [facility] with regards to the overlapping rooms and will continue to comply with changes to this policy as they occur. The requirements include and are complied with as follows: (1) the critical portions of the overlapping rooms will not occur at the same time, (2) the attending physician will be physically present during the critical portions of the procedure and immediately available during the entire case, and (3) a back-up attending is designated should the primary attending not be immediately available. The patient has had a chance to review all the listed information, has been given print outs detailing this information, and has had all his/her questions answered to their satisfaction. It was my pleasure to have seen and examined Mr. Buckner. In our visit today we have had a chance to go over my understanding of our patient's current condition, the natural course history without intervention and various interventional options. Questions were invited and answered, and the patient wishes to proceed as outlined above. I have seen and examined the patient for 25 minutes and we have spent more than 50% of the time in repeat and detailed counseling about the patient's condition, its natural course history with out and as much as can be predicted with surgery and re-review of various surgical treatment options. In conclusion, Mr. Buckner requested we proceed with the above suggested surgery and are willing to accept risks and limitations of the suggested surgery as nature of the disease process and our best attempts at treatment for the condition. Thank you again for allowing us to be part of your patient's care. Please don't hesitate to contact me if you have any further questions. Signed and authenticated by: [employer] P:\\\\ppart\\ \\[id number]\\\\[id number]\\\\[id number] \\[id number]\\\\[id number]\\\\[id number] \\d Follow- up: 2 weeks post-op Patient Education: (Informational booklet, instructions, etc) given at today's appointment: Yes .ED:Patient Education: Y Plan at next visit: pre-operative review Medications Reviewed: YES In our visit today Mr. Buckner and I have had a chance to go over my understanding of the patient's current condition, the natural course history without intervention and various interventional options. Questions were invited and answered, and the patient wishes to proceed as outlined above. I will be sure to keep you updated afterMr. Buckner returns here for further follow-up. Thank you again for your referral. Please do not hesitate to contact me if you have any further questions. Signed and authenticated by: Zurdo Sawant [facility] [address] [place] [address] This message is confidential, intended only for the named recipient(s) and may contain information that is privileged or exempt from disclosure under applicable law. If you are not the intended recipient(s), you are notified that the dissemination, distribution or copying of this information is strictly prohibited. If you received this message in error, please notify the sender then delete this message. Patient verbalizes understanding of the information discussed. The above note was initiated by Zurdo Almonte, physician recording apartment community assistant manager for Dr. Zurdo Toro. This note has been reviewed by Dr. Toro, who has made his personal changes and impressions for this document. CC: Noe GDOOY .MN:Procedure: Office Visit Level 2 : 45756 Evaluation and Management code calculated based on the 1995 CMS Guidelines. # SIGNED BY Zurdo Toro (GOO)08/17/2022 06:10AM Past Medical History Past Medical History: Osteoarthritis (OA), Thyroid Disorder Additional Past Medical History / Comment(s): Occasional vertigo. Hypothyroid. Muscle twitching. 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 Past Anesthesia/Blood Transfusion Reactions: No Reported Reaction, Motion Sickness Past Psychological History: No Psychological Hx Reported Smoking Status: Former smoker Past Alcohol Use History: None Reported Additional Past Alcohol Use History / Comment(s): Quit smoking 25 yrs ago. Past Drug Use History: Marijuana Additional Drug Use History / Comment(s): Marijuana use daily. Aware no use 24 hrs prior to procedure. - Past Family History Father Family Medical History: Myocardial Infarction (OR) Additional Family Medical History / Comment(s): Father of a OR at the age of 50. Mother Additional Family Medical History / Comment(s): Mother has "heart issues and gallbladder disease." Medications and Allergies Home Medications Medication Instructions Recorded Confirmed Type Levothyroxine Sodium 125 mcg PO QAM 08/16/22 08/16/22 History Allergies Allergy/AdvReac Type Severity Reaction Status Date / Time No Known Allergies Allergy Verified 08/16/22 09:53 Physical Examination Osteopathic Statement: *. No significant issues noted on an osteopathic structural exam other than those noted in the History and Physical/Consult.
[~2022-08-17 08:17] MED LIST: ACETAMINOPHEN TAB 500 MG TAB PO PRN; GABAPENTIN 300 MG CAP PO PRN; HYDROmorphone 0.5 MG/0.5 ML SYRINGE IVP PRN; LIDOCAINE 1% (10MG/ML) FOR IV START INTRADERMA PRN; ONDANSETRON 4 MG/2 ML VIAL IVP PRN; TRANEXAMIC ACID IN NACL,ISO-OS 1,000 MG in SALINE 1 100ML.BAG IVPB PRN
[2022-08-17] MEDS: LACTATED RINGERS 1,000 ML IV SCH ×2 (09:08→10:52)
--- NOTE | 2022-08-17 10:51 | P.PN ---
Progress Note - Text Progress Note Date: 08/17/22 History and Physical UPDATE I have seen and examined the patient and reviewed the history and physical. There appear to be no significant changes in the patient's current medical status as outlined in the current History and Physical.
[2022-08-17] MEDS ORDERED: fentaNYL (PF) 50 MCG/ML 2 ML AMP ONE (10:58)
[2022-08-17] MEDS ORDERED: ROCURONIUM 10 MG/ML (5 ML VIAL) IV ONE (10:58)
[2022-08-17] MEDS ORDERED: PROPOFOL 10 MG/ML 100 ML VIAL IV ONE (10:58)
[2022-08-17] MEDS ORDERED: TRANEXAMIC ACID IN NACL,ISO-OS 1,000 MG/100 ML BAG ONE (10:58)
[2022-08-17] MEDS ORDERED: ePHEDrine 50 MG/ML 1 ML VIAL ONE (10:58)
[2022-08-17] MEDS ORDERED: KETAMINE 10 MG/ML 20 ML VIAL ONE (10:58)
[2022-08-17] MEDS ORDERED: HYDROmorphone (PF) 1 MG/ML ONE (10:58)
[2022-08-17] MEDS ORDERED: SUCCINYLCHOLINE CHLORIDE 200 MG/10 ML VIAL IV ONE (10:58)
[2022-08-17] MEDS ORDERED: MIDAZOLAM 2 MG/2 ML VIAL ONE (10:58)
[2022-08-17] MEDS ORDERED: LIDOCAINE 2% INJ 20 MG/ML (2 ML VIAL) ONE (10:58)
[2022-08-17] MEDS ORDERED: THROMBIN (BOVINE) 5,000 UNIT VIAL MISCELLANE ONE ×2 (12:14)
[2022-08-17] MEDS ORDERED: GELATIN SPONGE,ABSORB (LARGE) 1 EACH SPONGE MISCELLANE ONE (12:15)
--- NOTE | 2022-08-17 14:52 | XR ---
Intraoperative/procedural fluoroscopic services were provided for anterior cervical fusion. Total flu oroscopy time is 1 minute 1 second with a total of 3 submitted images to PACS. Please see the operati ve note for further details.
[2022-08-17] MEDS ORDERED: LACTATED RINGERS 1,000 ML IV ONE ×2 (14:53)
[2022-08-17] MEDS ORDERED: diphenhydrAMINE 50 MG/ML 1 ML VIAL IVP ONE (15:48)
[2022-08-17] MEDS ORDERED: MAGNESIUM HYDROXIDE 2,400 MG/10 ML CUP PO PRN (16:19)
[2022-08-17] MEDS ORDERED: SENNOSIDES-DOCUSATE SODIUM 1 EACH TAB PO PRN (16:19)
[2022-08-17] MEDS ORDERED: HYDROmorphone 0.5 MG/0.5 ML SYRINGE IVP PRN (16:19)
[2022-08-17] MEDS ORDERED: HYDROcodone/APAP 10-325MG 1 EACH TAB PO PRN (16:19)
[2022-08-17] MEDS ORDERED: HYDROmorphone 1 MG/ML 1 ML SYRINGE IVP PRN (16:19)
[2022-08-17] MEDS ORDERED: ONDANSETRON 4 MG/2 ML VIAL IVP PRN (16:19)
[2022-08-17] MEDS ORDERED: HYDROcodone/APAP 7.5-325MG 1 EACH TAB PO PRN (16:22)
[2022-08-17] MEDS ORDERED: DEXAMETHASONE SOD PHOSPHATE 4 MG/ML 1 ML VIAL IVP PRN (16:23)
[2022-08-17] MEDS: ACETAMINOPHEN TAB 325 MG TAB PO SCH ×2 (18:21→23:49)
[2022-08-17] MEDS: GABAPENTIN 300 MG CAP PO SCH (20:04)
[2022-08-17] MEDS: CYCLOBENZAPRINE 5 MG TAB PO PRN (20:04)
[2022-08-18] MEDS: ACETAMINOPHEN TAB 325 MG TAB PO SCH ×4 (04:17→23:42)
[2022-08-18] MEDS ORDERED: DEXAMETHASONE SOD PHOSPHATE 10 MG/ML 1 ML VIAL IVP ONE (07:00)
[2022-08-18] MEDS: GABAPENTIN 300 MG CAP PO SCH ×2 (08:04→21:00)
--- NOTE | 2022-08-18 08:21 | CT ---
EXAMINATION TYPE: CT cervical spine wo con DATE OF EXAM: 08/18/2022 COMPARISON: Intraoperative cervical spine x-ray yesterday and outside cervical spine images May HISTORY: S/P Cervical Fusion CT DLP: 908.1 mGycm. Automated Exposure Control for Dose Reduction was Utilized. TECHNIQUE: CT scan of the cervical spine is obtained without contrast, axial images are obtained, sa gittal and coronal reformatted images are also reviewed. FINDINGS: Persistent levoconvex scoliotic curvature centered near the cervicothoracic junction on cor onal images. Redemonstration of the anterior fusion plate with metallic disc material at C3-C4 level, C4-C5 level, C5-C6 level and C6-C7 levels. Screw and disc position appears satisfactory. Tiny technology education teacher ior bony projections near the superior C4 vertebra sagittal images 65 through 68 are noted projecting towards the anterior spinal canal. Prevertebral soft tissue appears within normal limits. C1-C2 get culation satisfactory on coronal images. Review of axial images confirms satisfactory position of screws and metallic disc material. Subcutane ous gas and ill-defined fluid throughout the right greater than left neck is noted correlating with h istory of surgery one day earlier. Lung apices are clear without pneumothorax. There is percutaneous right-sided drainage catheter terminating at roughly right C5 level. Heterogeneous somewhat small siz e thyroid is noted. IMPRESSION: As above.
[2022-08-18 09:23] LABS: African American GFR (CKD) >90 (>60 ml/min/1.73 sqM); Anion Gap 12 mmol/L; Blood Urea Nitrogen 11 mg/dL (9-20); Calcium 9.2 mg/dL (8.4-10.2); Carbon Dioxide 25 mmol/L (22-30); Chloride 102 mmol/L (98-107); Glucose 129 mg/dL (74-99); Non-African American GFR(CKD) 87 (>60 ml/min/1.73 sqM); Potassium 4.3 mmol/L (3.5-5.1); Sodium 139 mmol/L (137-145)
[2022-08-18] MEDS: CYCLOBENZAPRINE 5 MG TAB PO PRN (09:54)
--- NOTE | 2022-08-18 10:00 | P.PN ---
Subjective Progress Note Date: 08/18/22 Principal diagnosis: Cervical spondylosis Cervical stenosis Patient seen and examined at bedside. Patient was sitting up in chair tolerating breakfast. Patient does report that he has difficulty swallowing. Encouraged use of ice chips. Patient states that his pain is managed on current regimen. Surgical dressing was changed with CECI drain removed. Patient tolerated well. He reports relief of his symptoms that were present prior to procedure. Patient denies any fevers/chills, nausea/vomiting, or chest pain. Objective - Vital Signs Vital signs: Vital Signs Temp 98.6 F 08/18/22 04:45 Pulse 81 08/18/22 04:45 Resp 14 08/18/22 04:45 BP 157/93 08/18/22 04:45 Pulse Ox 95 08/18/22 04:45 FiO2 Intake & Output 08/17/22 08/18/22 08/18/22 18:59 06:59 18:59 Intake Total 1650 Output Total 500 95 Balance 1150 -95 Weight 110.7 kg Intake: IV 1650 Output: Drainage 45 Anterior Neck 45 Urine 400 Emesis 50 Estimated Blood Loss 100 Other: Voiding Method Toilet # Voids 1 - Exam Physical Examination General: The patient is awake and alert, in no acute distress Skin: Skin is warm and dry with no obvious rashes or lesions. Hairy patches absent, no dorsal skin dimples, no cafe au lait spots. Surgical incision into a nterior cervical region. Eye: Pupils are equal, round and reactive to light, extra-ocular movements are intact; there is normal conjunctiva bilaterally. Neck: The neck is supple, there is slight tenderness and ROM limited Cardiovascular: There is a regular rate and rhythm. No murmur, rub or gallop is appreciated. Respiratory: Lungs are clear to auscultation, respirations are non-labored, breath sounds are equal. Gastrointestinal: Soft, non-distended, non-tender abdomen . Back: There is no tenderness to palpation in the midline, paralumbar, parathoracic or buttocks region. There is no obvious deformity . Musculoskeletal: ROM limited secondary to pain and stiffness from surgical procedure. Muscle strength in all major muscle groups: 4/5 in bilateral upper extremities, 5/5 in bilateral lower extremities Neurological: CN 2-12 intact. There are no obvious motor or sensory deficits. Movement and coordination equal and intact. Sensory exam to light touch intact C5-T1 and intact from L2-S1. Reflexes 2/4 in bilateral upper and lower extremities. Negative Hoffmans, babinski, and clonus signs. Psychiatric: Cooperative, appropriate mood & affect, normal judgment. - Labs CBC & Chem 7: 08/18/22 08:45 Assessment and Plan Assessment: s/p Post Op Day 1: C3-C7 ACDF Cervical spondylosis Cervical stenosis Plan: Plan: -Appreciate business travel consultant and team management. -Activity: Ambulate QID, OOB all meals, up and about, limit lifting bending twisting to less than 5 lbs. Use walker or cane if needed for stability. -Daily PT/OT, increase ambulation strength and balance. -Soft collar when up and about, not needed in bed or chair -Pain control: Adequate at this time -Meds: reviewed -GI ppx: senna, Miralax -DVT PPX: OK to restart Heparin tonight -Hygiene: Shower today. Maintain dressing clean and dry. -Encourage IS 10x/hr -Dispo: Anticipate discharge home today or tomorrow with homecare *I reviewed and discussed this case with my attending Dr. Toro, whom has reviewed this chart and films and is in agreement with assessment and plan of care as outlined above. I have personally seen and examined the patient, performed the documentation and the assessment and plan as written. Number of minutes spent on the visit: 20m.
[2022-08-18] MEDS: LEVOTHYROXINE 125 MCG TAB PO SCH (11:00)
[2022-08-18 11:29] LABS: Basophils # (A) 0.02 X 10*3/uL (0.00-0.10); Basophils % (A) 0.2 %; Eosinophils # (A) 0 X 10*3/uL (0.04-0.35); Eosinophils % (A) 0 %; HCT 39.8 % (39.6-50.0); HGB 13.9 g/dL (13.0-17.0); Immature Grans, Automated 0.6 %; Lymphocytes # (A) 0.58 X 10*3/uL (0.90-5.00); Lymphocytes % (A) 4.6 %; MCH 30.2 pg (27.0-32.0); MCHC 34.9 g/dL (32.0-37.0); MCV 86.3 fL (80.0-97.0); Mean Platelet Volume 9.6 fL (9.5-12.2); Monocytes # (A) 0.65 X 10*3/uL (0.20-1.00); Monocytes % (A) 5.1 %; NRBC Per 100 WBC 0 /100 WBCS (0.0-0.0); Neutrophils % (A) 89.5 %; Platelet Count 245 X 10*3/uL (140-440); RBC 4.61 X 10*6/uL (4.40-5.60); RDW 12.6 % (11.5-14.5); WBC 12.72 X 10*3/uL (4.50-10.00)
--- NOTE | 2022-08-18 12:49 | P.OP ---
Date of Procedure: 08/17/22 Preoperative Diagnosis: 1. C3 to C7 spondylosis with stenosis 2. Upper extremity radiculopathy 3. Upper extremity weakness 4. Mechanical neck pain Postoperative Diagnosis: 1. C3 to C7 spondylosis with stenosis 2. Upper extremity radiculopathy 3. Upper extremity weakness 4. Mechanical neck pain Procedure(s) Performed: 1. C3-4, C4-5, C5-6 and C6-7 anterior interbody fusion (61833, 66110h0) 2. C3 partial corpectomy, anterior with decompression of spinal cord (32536/59) 3. C3-4, C4-5, C5-6 and C6-7 insertion of biomechanical device (93243c2) 4. C3-4, C4-5, C5-6 and C6-7 application of non integrated anterior plates (21655) Use of IONM Implants: -Inderjit cascadia 12 deg lordosis -[employer] Spine [place] plate -Autograft, allograft, Bio4 Anesthesia: GETA Surgeon: Zurdo Toro Insurance Sales Executive #1: Lon Gold ( was present and assisted in all aspects of the case including positioning exposure decompression fusion hardware placement and closure and dressing placement) Estimated Blood Loss (ml): 150 IV fluids (ml): 2,000 Urine output (ml): 300 Pathology: none sent Condition: stable Disposition: PACU Indications for Procedure: Mr. Buckner is presenting for evaluation of cervical pain and bilateral upper extremity radiculopathy. It was my pleasure to have seen and examined Mr. Buckner. In our visit today we have had a chance to go over subjective complaints, physical examination findings and treatments including the natural course history without intervention and various interventional options. The patients imaging demonstrates: XRay taken on 06/17/22 of Cervical Spine: Images reviewed with pt. Overall flattened cervical alignment with severe spondylotic changes noted C3-7 with disc height loss, anterior osteophyte formation and endplate sclerosis. There are no fractures noted. C0-1 and C1-2 are stable at this time. Subaxial C spine shows some signs of degenerative listhesis at C3-4, no overt instability noted. F/E films shows increased kyphosis. MRI scan from02/25/2022 of Cervical Spine: Images reviewed with the patient demonstrate severe spondylosis from C3-7 with disc dessication and height loss, moderate to severe central and foraminal stenosis from C3-7 due to disc herniations old and new along with disc bulging, spondylotic changes anteriorly and posteriorly with some ligamentous hypertrophy. Benining myelomalacia noted C4-5 and C5-6 which is mild, but due to the severe stenosis in this area could progress. No acute fracture noted. C0-1 and C1-2 are stable. No lesions noted. On physical exam, Mr. Buckner demonstrates restricted cervical ROM with bilateral upper extremity radiculopathy and weakness about the hands. I have explained to the patient that as their condition progresses it will cause further neurological deficits and eventual paralysis. Based on the patients santi ging, physical exam, and the rapid progression and disabling nature of their symptoms, at this time I recommend surgery in the form or a: cervical (C3-C7) ACDF. I discussed the risk and benefits of this procedure at length with Mr. Buckner. The patient agreed to considered pursuing the procedure abovementioned. Prior to surgery, she should follow up with her PCP (Cardio, ID, IM etc) for clearance. Questions were invited and answered, and the patient wishes to proceed as outlined below. Currently, I am recommendin.cervical (C3-C7) ACDF Description of Procedure: The patient was seen and examined in the preoperative area. All preoperative protocols were followed. Informed consent was obtained risks and benefits of the procedure were discussed at length. Risks including bleeding infection damage to the surrounding tissue and risk of reoperation were discussed with the patient. Risk of anesthesia up to and including was a discussed with the patient. These are outlined in the risk review. They were willing to accept these risks and all of the risks of surgery. The patient was given a weight- based dose of antibiotics in the form of 2 g Ancef. The patient was seen and evaluated by the anesthesia team who deemed them fit for surgery. The site was marked, the patient was willing to proceed with the procedure. The patient was transferred to the operative suite by the Department of anesthesia. They were then drifted off to sleep by the department anesthesia an d GETA was performed. The patient tolerated this well. [Lorenzo catheter was placed by nursing staff, atraumatically]. Once confirmation of lines and ventilation the patient was transferred to a flat top trios table.shoulder roll was placed and head was placed on a jelly donut. Shoulders were gently taped down to the table.. All bony prominences including wrists, elbows, axilla, chest, hips, and thighs, and feet were padded very well. Special attention was paid to the genitalia and these were padded accordingly. SCDs were placed on bilateral lower extremities and were connected. Arms were well padded and placed tucked at his side well-padded thumb's up. Once in position, again we confirmed good ventilation capabilities and that lines were running appropriately. The patient's anterior cervical spine was then exposed. 1010s were placed outlining the incision site. Standard alcohol was used to clean the incision site and allowed to dry. C-arm was used to biomark the patient and con firm level for incision which was marked with a skin marker. Operative briefing was performed with all teams and everyone in agreement to proceed. The patient was then prepped and draped in a normal sterile fashion. Timeout was then performed and all parties were in agreement with the procedure to be performed. longitudinal skin incision was made over the previously by marked area and a standard Cherry-Chapa approach to the anterior cervical spine was performed. Carotid type incision allowed for better exposure. SCM was identified and exposure was between SCM and the medial structures. Blunt dissection was taken down to the anterior cervical spine which was identified. The midline structures were carefully mobilized. There was a lot of scar tissue in this area but the esophagus and midline structures were mobilized successfully. This was done from C3 down to C7. Once mobilization was complete we a blunt probe was used to confirm level for operation under lateral fluoroscopic imaging. Once this was accomplished we selected the most difficult level which was C6-C7 and started here. Henderson pins were placed in the C6 and C7 using lateral fluoroscopic guidance. Careful distraction was then taken across the C6 7 joint. Operating microscope was then brought in for visualization. Prior to this retractors had been placed and subperiosteal dissection then performed of the longissimus muscles from C3 through C7. Once this distraction was accomplished a complete discectomy was performed at C6-C7 using high-speed bur and Kerrison rongeurs render and curettes. Bur was used to remove osteophytes from C6 anteriorly and posteriorly and the PLL was identified and resected using up-biting curette as well as Kerrisons. Bilateral foraminotomies performed with Kerrison rongeurs. Once good decompression was performed meticulous hemostasis was performed to space was irrigated and sizers were placed until the optimal size was accomplished. We then selected a cage packed with autograft allograft about 4 and impacted it into position under lateral fluoroscopy. Once this was accomplished the cage was secured distraction was removed and a boomerang plate was selected this plate was then placed and holes were drilled for screws screws were then placed and had good purchase and the locking mechanism was set for the screws. We then removed the Kolton pin from C7 and replaced it in C5. Bone wax was placed in its void and C7. We then replaced retractors and placed distractor and careful distraction was taken out over C5-C6 we then performed a complete discectomy and C5-C6 end plates were scraped and removed of any material once devoid of any other material and good bleeding endplates were accomplished high-speed bur was used to remove osteophytes anteriorly and posteriorly pillow was identified and resected using up-biting curet and Kerrison Lenny Kerrison rongeur was used for bilateral foraminotomies and good decompression was accomplished. Meticulous hemostasis was performed to space was irrigated and sizers were used under lateral fluoroscopic guidance. Once a cage size was selected the cage was selected packed and impacted into place. This is done under lateral fluoroscopic guidance. Once in good position a boomerang plate was selected the plate was then placed and screws were drilled and placed and were in good position and had good purchase the locking mechanism was then set on the plate. We then removed the Ashton pin from C6 and replaced it into C4. Retractors were replaced and careful distraction was placed across C4-C5 complete discectomy was performed C4-C5 using high-speed bur Kerrison rongeurs and curettes. Good bleeding endplates were encountered osteophytes removed anteriorly and posteriorly of C4 and PLL was identified. Once identified and was resected using up-biting curettes as well as Kerrison rongeurs. Foraminotomies performed using Kerrison rongeurs well and meticulous hemostasis performed. Good decompression was confirmed and the sizers for the cages were then inserted once cage was sized was selected and packed and impacted into place under lateral fluoroscopic guidance. Once in position and was stable distraction was removed and a boomerang plate was selected it was then drilled and filled with screws and screws were stable with good purchase and the locking mechanism was set. We then removed the Kolton pin from C5 and placed in C3. Careful distraction was taken out over C3-C4. We then performed complete discectomy at this level using Ignacia Galvez high-speed bur and curet. Good bleeding endplates were accomplished them remove osteophytes anteriorly and posteriorly on C3 An due to exuberant osteophytes a partial corpectomy of C3 was performed. This allowed for visualization of PLL once it was identified PLL was resected and bilateral foraminotomies performed with Kerrison rongeur and up-biting curette. We then sized a for a Inderjit cage. The cage was impacted under lateral fluoroscopic guidance. A screw was placed through the cage however a inferior screw was unable to be placed as the cage would not allow it for an unknown reason. We then selected a boomerang plate instead and placed it over this area the plate was then drilled and filled with screws and the screws had good purchase and were safe. We then thoroughly irrigated the wound. Final fluoroscopic images were taken confirming good yazidi of height lordosis and alignment. AP confirmed good placement of cages centrally as well as plates. All screws were safe. Neuro monitoring whic h was performed during the entire case motors were performed before and after cage placement and always remained stable throughout. Final motor was rounded and room was also stable. We then removed retractors copiously irrigated with normal sterile saline then placed Surgicel deep within the wound and placed a deep drain. The wound was then closed in layered fashion first in the platysma muscle which was closed with 3-0 Vicryl subcu tissues closed with 3-0 Vicryl and subcuticular tissue closed with a 40 strata fix. The wound edges approximated very well. We then cleaned and placed Phoenix over the wound followed by a dressing once the glue dried. The patient was placed in a hard collar. The patient was transferred back to their hospital bed atraumatically. [Drain continued to hold suction and were in good position]. Patient was then awakened and extubated by the department of anesthesia having tolerated the procedure very well with no complications. They were transferred to the postoperative care unit in stable condition.
--- NOTE | 2022-08-18 14:55 | P.CONS ---
History of Present Illness - Reason for Consult Consult date: 08/18/22 Medical management Requesting physician: Zurdo Toro - Chief Complaint Cervical spine surgery - History of Present Illness This is a 51-year-old patient, follows with Dr. Pablo Kern. Patient had C3 to C7 spondylosis with stenosis, upper extremity radiculopathy and weakness. Patient underwent decompression surgery for the same by Dr. Toro. Yesterday. Today sitting up in a chair. Has pain at the operative site. Some trouble swallowing. Started with liquid diet. No fever no chills. Getting a cervical collar. Patient had made urine. Patient's had no bowel movement in the last 2 days. No chest pain or palpitation. Patient refuses power is better in his upper extremity. Compared to prior to surgery. Review of systems: GEN.: Tired EYES: None HEENT: Some trouble swallowing NECK: Cervical collar RESPIRATORY: None CARDIOVASCULAR: None GASTROINTESTINAL: None GENITOURINARY: None MUSCULOSKELETAL: Operative site neck pain LYMPHATICS: None HEMATOLOGICAL: None PSYCHIATRY: None NEUROLOGICAL: None Past medical history to include: C3-C7 spondylosis with stenosis, upper extremity radiculopathy with weakness, hypothyroid Family history: Father of an AK Social history: Lives alone. Stop smoking 25 years ago. Marijuana use daily. Physical examination: VITAL SIGNS: 98.6, 91, 14, 157 x 93, 95% room air, GENERAL: BMI 34.5, sitting up in a chair. Not in distress EYES: Pupils equal. Conjunctiva normal. HEENT: External appearance of nose and ears normal, oral cavity grossly normal. NECK: Cervical collar. HEART: First and second heart sounds are normal; no edema. LUNGS: Respiratory rate normal; clear to auscultation. ABDOMEN: Soft, nontender, liver spleen not palpable, no masses palpable. PSYCH: Alert and oriented x3; mood and affect normal. MUSCULOSKELETAL:No Clubbing/cyanosis;muscles-grossly intact NEUROLOGICAL: Cranial nerves grossly intact; no facial asymmetry, power and sensation grossly intact. Good insights strategist in both the hands LYMPHATICS: No lymph nodes palpable in the axilla and neck INVESTIGATIONS, reviewed in the clinical context: WBC 12.7 hemoglobin 13.9 platelets 245 sodium 139 potassium 4.3 creatinine 0.99 Assessment and plan: - C3 to C7 spondylosis with stenosis, upper extremity radiculopathy and weakness. August 17 patient underwent decompression, insertional device/surgery by Dr. Toro. With a neck collar. -Acute constipation from decreased oral intake and decreased mobility. Encourage activity. We'll use laxative if needed. -Leukocytosis, likely from stress from surgery. No clinical evidence of infection currently. Follow clinically and repeat labs. -Hypothyroid Synthroid Pain control. Activity as tolerated. Laxative as needed. Resume Synthroid. Repeat CBC. Care was discussed with the patient questions answered. Thank you Dr. Toro Past Medical History Past Medical History: Osteoarthritis (OA), Thyroid Disorder Additional Past Medical History / Comment(s): Occasional vertigo. Hypothyroid. Muscle twitching. 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 Past Anesthesia/Blood Transfusion Reactions: No Reported Reaction, Motion Sickness Past Psychological History: No Psychological Hx Reported Smoking Status: Former smoker Past Alcohol Use History: None Reported Additional Past Alcohol Use History / Comment(s): Quit smoking 25 yrs ago. Past Drug Use History: Marijuana Additional Drug Use History / Comment(s): Marijuana use daily. Aware no use 24 hrs prior to procedure. - Past Family History Father Family Medical History: Myocardial Infarction (AK) Additional Family Medical History / Comment(s): Father of a AK at the age of 50. Mother Additional Family Medical History / Comment(s): Mother has "heart issues and gallbladder disease." Medications and Allergies Home Medications Medication Instructions Recorded Confirmed Type Levothyroxine Sodium 125 mcg PO QAM 08/16/22 08/17/22 History Allergies Allergy/AdvReac Type Severity Reaction Status Date / Time No Known Allergies Allergy Verified 08/17/22 08:45 Physical Exam Vitals: Vital Signs Temp Pulse Resp BP Pulse Ox 08/18/22 04:45 98.6 F 81 14 157/93 95 08/18/22 02:19 98.0 F 80 18 160/98 94 L 08/17/22 20:00 73 16 08/17/22 19:04 98.2 F 73 16 179/104 94 L 08/17/22 17:39 96.6 F L 75 15 158/92 98 08/17/22 17:02 78 17 167/92 93 L 08/17/22 16:47 88 16 160/95 95 08/17/22 16:32 88 16 160/97 93 L 08/17/22 16:17 80 17 172/98 92 L 08/17/22 16:02 95 17 183/91 95 08/17/22 15:47 102 H 16 172/92 96 08/17/22 15:32 89 16 164/99 91 L 08/17/22 15:17 96.8 F L 105 H 16 126/64 100 Intake and Output 08/17/22 08/18/22 08/18/22 22:59 06:59 14:59 Intake Total 100 Output Total 300 95 Balance -200 -95 Intake: IV 100 Output: Drainage 45 Anterior Neck 45 Urine 300 Emesis 50 Other: Voiding Method Toilet # Voids 1 Results CBC & Chem 7: 08/18/22 08:45 08/18/22 08:45 Labs: Abnormal Lab Results - Last 24 Hours (Table) 08/18/22 Range/Units 08:45 Glucose 129 H (74-99) mg/dL
[2022-08-18] MEDS: DEXAMETHASONE SOD PHOSPHATE 4 MG/ML 1 ML VIAL IVP SCH ×2 (17:40→23:42)
[2022-08-18 19:33] VITALS: RESP 16
[2022-08-19 04:47] VITALS: BP 146/89; PULSE 66; TEMP 97.9
[2022-08-19] MEDS: DEXAMETHASONE SOD PHOSPHATE 4 MG/ML 1 ML VIAL IVP SCH (05:29)
[2022-08-19] MEDS: ACETAMINOPHEN TAB 325 MG TAB PO SCH (05:29)
[2022-08-19] MEDS: LACTATED RINGERS 1,000 ML IV SCH (06:35)
[2022-08-19 06:47] LABS: Basophils % (A) 0 %; Eosinophils % (A) 0 %; HCT 40.8 % (39.0-53.0); HGB 14.1 gm/dL (13.0-17.5); Lymphocytes # (A) 0.8 k/uL (1.0-4.8); Lymphocytes % (A) 7 %; MCH 30.4 pg (25.0-35.0); MCHC 34.6 g/dL (31.0-37.0); Mean Platelet Volume 7.5; Monocytes # (A) 0.8 k/uL (0-1.0); Monocytes % (A) 7 %; Neutrophils # (A) 10.6 k/uL (1.3-7.7); Neutrophils % (A) 85 %; Platelet Count 235 k/uL (150-450); RBC 4.63 m/uL (4.30-5.90); RDW 12.6 % (11.5-15.5); WBC 12.5 k/uL (3.8-10.6)
--- NOTE | 2022-08-19 08:31 | P.PN ---
Subjective Progress Note Date: 08/19/22 Principal diagnosis: Cervical spondylosis Cervical stenosis Patient seen and examined at bedside. Patient was sitting up in chair tolerating breakfast, he states he is able to swallow more thicker fluids, but has difficulty with water. Patient states that his pain is managed on current regimen. Surgical dressing CDI. Hard collar is present. Patient states he feels comfortable going home today. Patient denies any fevers/chills, nausea/vomiting, or chest pain. Objective - Vital Signs Vital signs: Vital Signs Temp 97.9 F 08/19/22 04:45 Pulse 66 08/19/22 04:45 Resp 16 08/19/22 04:45 BP 146/89 08/19/22 04:45 Pulse Ox 95 08/19/22 04:45 FiO2 Intake & Output 08/18/22 08/19/22 08/19/22 18:59 06:59 18:59 Intake Total 590 Output Total 350 Balance -350 590 Intake: Intake, IV Titration 50 Amount ceFAZolin 2 gm In Sodium 50 Chloride 0.9% 50 ml @ 100 mls/hr IVPB Q8H [facility] Rx#: [id number] Oral 540 Output: Urine 300 Emesis 50 Other: Voiding Method Toilet # Voids 1 - Exam Physical Examination General: The patient is awake and alert, in no acute distress Skin: Skin is warm and dry with no obvious rashes or lesions. Hairy patches absent, no dorsal skin dimples, no cafe au lait spots. Surgical incision into anterior cervical region. Eye: Pupils are equal, round and reactive to light, extra-ocular movements are intact; there is normal conjunctiva bilaterally. Neck: The neck is supple, there is slight tenderness and ROM limited Cardiovascular: There is a regular rate and rhythm. No murmur, rub or gallop is appreciated. Respiratory: Lungs are clear to auscultation, respirations are non-labored, breath sounds are equal. Gastrointestinal: Soft, non-distended, non-tender abdomen . Back: There is no tenderness to palpation in the midline, paralumbar, parathoracic or buttocks region. There is no obvious deformity . Musculoskeletal: ROM limited secondary to pain and stiffness from surgical procedure. Muscle strength in all major muscle groups: 4/5 in bilateral upper extremities, 5/5 in bilateral lower extremities Neurological: CN 2-12 intact. There are no obvious motor or sensory deficits. Movement and coordination equal and intact. Sensory exam to light touch intact C5-T1 and intact from L2-S1. Reflexes 2/4 in bilateral upper and lower extremities. Negative Hoffmans, babinski, and clonus signs. Psychiatric: Cooperative, appropriate mood & affect, normal judgment. - Labs CBC & Chem 7: 08/19/22 05:44 08/18/22 08:45 Labs: Abnormal Lab Results - Last 24 Hours (Table) 08/18/22 08/18/22 08/19/22 Range/Units 08:45 08:45 05:44 WBC 12.72 H 12.5 H (4.50-10.00) X 10*3/uL Immature Gran # 0.07 H (0.00-0.04) X 10*3/uL Neutrophils # 11.40 H 10.6 H (1.80-7.70) X 10*3/uL Lymphocytes # 0.58 L 0.8 L (0.90-5.00) X 10*3/uL Eosinophils # 0 L (0.04-0.35) X 10*3/uL Glucose 129 H (74-99) mg/dL Assessment and Plan Assessment: s/p Post Op Day 2: C3-C7 ACDF Cervical spondylosis Cervical stenosis Plan: Plan: -Appreciate residential sales consultant and team management. -Activity: Ambulate QID, OOB all meals, up and about, limit lifting bending twisting to less than 5 lbs. Use walker or cane if needed for stability. -Daily PT/OT, increase ambulation strength and balance. -Soft collar when up and about, not needed in bed or chair -Pain control: Adequate at this time -Meds: reviewed -GI ppx: senna, Miralax -DVT PPX: OK to restart Heparin tonight -Hygiene: Shower today. Maintain dressing clean and dry. -Encourage IS 10x/hr -Dispo: Anticipate discharge home today with homecare *I reviewed and discussed this case with my attending Dr. Toro, whom has reviewed this chart and films and is in agreement with assessment and plan of care as outlined above. I have personally seen and examined the patient, performed the documentation and the assessment and plan as written. Number of minutes spent on the visit: 20m.
--- NOTE | 2022-08-19 08:42 | P.DS ---
Providers Date of admission: 08/18/22 11:45 Expected date of discharge: 08/19/22 Attending physician: Zurdo Toro DO Consults: 08/17/22 16:22 Consult Physician Routine Consulting Provider: Mykel Koo Consult Reason/Comments: Medical Management Do you want consulting provider notified?: Yes Primary care physician: [facility] Course: Hospital Course: The patient was evaluated preoperatively and found to have the diagnosis of cervical analysis with stenosis. They underwent appropriate preoperative care and were willing to undergo the intended procedure. They underwent a successful C3-C7 ACDF, were recovered appropriately and sent to the floor. While on the floor they worked with physical therapy, occupational therapy and nursing to enhance their recovery experience. Their pain was well controlled through their stay and they were started on appropriate medications, DVT ppx modalities, activity and dietary needs. Daily labs were monitored closely, and transfusions were only used when necessary. Medicine as well as other consulting services have made their input and have helped with our team approach and mu ltidisciplinary care. PT milestones have been met and passed and they have made the recommendation of home for this patient and treating providers agree with this care path. The patient will be discharged home with appropriate medications, instructions and follow-up information and in stable condition. Patient Condition at Discharge: Good Plan - Discharge Summary Discharge Rx Participant: No New Discharge Prescriptions: New cefaDROXiL [Duricef] 500 mg PO Q12HR 3 Days #6 cap Gabapentin 300 mg PO TID #90 cap Cyclobenzaprine [Flexeril] 5 mg PO TID #90 tablet No Action Levothyroxine Sodium 125 mcg PO QAM Discharge Medication List Levothyroxine Sodium 125 mcg PO QAM 08/16/22 [History] Cyclobenzaprine [Flexeril] 5 mg PO TID #90 tablet 08/19/22 [Rx] Gabapentin 300 mg PO TID #90 cap 08/19/22 [Rx] cefaDROXiL [Duricef] 500 mg PO Q12HR 3 Days #6 cap 08/19/22 [Rx] Follow up Appointment(s)/Referral(s): Johnathan Hinton MD [Primary Care Provider] - 1 Week Zurdo Toro DO [Doctor of Osteopathic Medicine] - 2 Weeks Activity/Diet/Wound Care/Special Instructions: Spine Discharge and Recovery Instructions Date of Surgery: 08/17/2022 Diagnosis: Cervical spondylosis with stenosis Procedure: C3-C7 ACDF Medications: See medication list All medication refills should be obtained through your primary care doctor or your clinic spine surgeon. Please discuss prescription refills at your follow up appointment. Do not call the hospital for medication refills. Dressing: Keep Hard Cervical on for the next 3 weeks. You may remove to shower, when sitting in chair or in bed. Leave your dressing in place for a total of 5 days post operatively. Then you may remove your dressing and leave open to air. Keep the area clean and if not able to keep area clean, then cover with sterile gauze and tape. Showering: You may shower 3 days after your procedure allowing soap and water to run over incision. Do not scrub. Do not soak. Blot dry. Follow up: Please confirm a follow up appointment with your surgeon 3 weeks post operatively. Please make an appointment to follow up with your PCP in 1-2 weeks after surgery for evaluation 3 phase, 3-week plan POST OP WEEKS 1-3 1. Lifting/carrying/pushing/pulling limited to less than 5 pounds. 2. Do not sit for longer than 15 minutes at one time. Get up and walk around. Prolonged sitting is NOT advised. If you lay down, see if you can tolerate laying down on you front (belly side) 3. Walk for periods of 15 minutes = 1 mile but no longer; do it multiple times times each day. 4. Ice your low back after activity. POST OP WEEKS 3-6 1. Lifting limited to less than 20 pounds. 2. Do not sit for longer than 30 minutes at a time. Frequently change positions. Use a sit-to stand workstation or take frequent breaks from sitting if you have returned to work. 3. Walk for 30 minutes each day. If possible, do these three or more times a day POST OP WEEKS 6+ At your 6-week appointment we will give you a physical therapy referral to focus on a core stabilization and strengthening program. You should also work on leg & buttock strengthening, hamstring & quadriceps stretching, and continue a low impact aerobic activity program such as swimming, walking, or riding a stationary bicycle. During the initial 6 weeks after your surgery, you are at the highest risk of re-injuring your spine. You should generally avoid BLTs (bending, lifting and twisting combination motions) and follow the above guidelines to reduce the chance of reinjury. You can anticipate post op appointments in our office at approximately 3 weeks and 6 weeks after your surgery. INCISION CARE: If your incision is not draining you do NOT need to cover it with a dressing. Keep your incision clean, dry and intact. In most cases, we apply skin glue, geovanna or sutures to the incision at the time of surgery. This will be like a crust or have the appearance of a scab and will fall off in time on its own. The stitches or geovanna need to be removed at 3 weeks post op appointment. You may begin to shower 3 days after surgery (this allows the glue to gabriel well). However, please avoid scrubbing the incision site or peeling off any of the skin glue. This will ensure optimal healing of your incision. Also, during this time avoid soaking the incision area in water - this includes swimming pools, hot tubs or baths. No ointments, lotions or oils on the incision until your surgeon allows. Leave geovanna, sutures or glue in place. Neurological dysfunction that comes on suddenly can also be a sign of a stroke. Below some common symptoms of a stroke are listed: B - balance difficulty such as sudden onset walking or leaning to one side - NEW E - eye problem such as sudden double vision or trouble seeing on one side - NEW F - Facial weakness or numbness on one side - NEW A - Arm or leg weakness or numbness on one side - NEW S - Slurred speech or difficulty with word finding - NEW T - Time is BRAIN! Call 911 as soon as you recognize these symptoms Diet: Consume a regular diet rich in vegetables and lean protein such as chicken or fish. You should consume in a ratio of approximately 20% fats|40% carbohydrates|40%protein. Vegetables, sweet potatoes, brown rice or quinoa are examples of good carbohydrates. Chips, white bread, cookies and sweets/sugar are examples of bad carbohydrates. Limit your bad carbs, go wild with good carbs. "Life's Simple 7" Guidelines as per [place] [employer] These will help you reclaim your life after surgery and wallpaperer helper in your recovery, keeping in mind your restrictions. (1) Get Active. Physical activity can help people lose weight, control high blood pressure and cholesterol, feel emotionally better, and sleep better. (2) Control Cholesterol. Avoid a diet high in saturated fat, trans fat, & cholesterol. Limit whole milk & cream, ice cream, butter, egg yolks, processed meats (like sausage and hot dogs), and fatty meats. Choose healthy foods that are low in saturated fat, trans fat and cholesterol which include: Fruits and vegetables, fiber rich grain products (like whole grain pasta and brown rice), lean meat such as chicken, fish, nuts, seeds, and legumes. (3) Eat Better. Eat small portions. Shop at the grocery with a list and do not stray from it. Tips for a healthy diet include: Limit sodium intake to less than 1500mg daily, avoid prepackaged, processed, and fast foods, choose a diet rich in fruits, vegetables, and whole grain, high fiber foods, and limit saturated & cholesterol in your diet. (4) Manage Blood Pressure. If you have high blood pressure, you should have a cuff at home so that you can check your blood pressure regularly. Be sure you have a good cuff. An arm one is generally better than a wrist one. Bring the cuff to a doctor's appointment to validate that the measurements that your cuff are taking are accurate. Take your blood pressure twice daily when you are sitting down and relaxing. Record the numbers in a log and bring this log with you to your doctors' appointments. (5) Lose Weight if your BMI is above 25. A healthy BMI is between 19-25. To calculate Your BMI, you may use a Standard BMI Calculator on the NIH BMI website: <www.nhlbi.nih.gov/guidelines/obesity/BMI/bmicalc.htm>. Weigh oneself daily. If you are overweight, set a goal to lose weight. A pound a week loss if needed is a good target. (6) Reduce Blood Sugar. Limit foods and liquids with "added sugars." (Added sugars include sucrose, fructose, glucose, maltose, dextrose, high fructose corn syrup, corn syrup, concentrated fruit juice and honey). (7) Stop Smoking. If you smoke, quitting smoking is one of the best things that you can do for your health. Smoking increases your risk of heart attack, stroke, and peripheral vascular disease, which is a build-up of plaque in your arteries. Please discard all the cigarettes and lighters in your house. Have a plan for what you will do when you have the urge to smoke. Direct and second- hand smoke shortens your life as well as the lives of your family, friends and others around you. For your health and the health of those around you, please consider quitting! Proper Bending Body Mechanics: Maintain a wide stance with one foot slightly in front of the other. Keep your back straight. Bend utilizing the strength in your hips and knees. Do not bend at the waist. Maintain the lifted object at your waist-level close to your body. Avoid lifting weight that causes immediately pain or pain anywhere in the body afterwards. Smoking/Nicotine If there was ever one thing that you could do to increase your overall health, decrease your risk of cardiovascular problems by about 39% the second you make the choice, it is to STOP SMOKING. Your body's most instant gratification is the second you stop smoking. We have all heard the studies, read the articles but it is true, smoking is extremely bad for your overall health, and moreover it is detrimental to your bone health. Nicotine, IN ANY FORM, kills bone cells, prevents your body from healing fractures, and significantly prolongs healing after surgery. In spine surgery specifically, it increases your risk of not healing your bones to create a fusion and increases your risk of having a revision surgery due to this up to 60%. I know it is hard. I know it feels impossible. But there are ways. Take control of your life. We are here to help you through it. And when you are ready, ask us and we can direct you to help if you desire. Use the START Plan to Quit Smoking (please visit the Helpguide.org website listed below for more information): S = Set a quit date. Choose a date within the next 2 weeks, so you have enough time to prepare without losing your motivation to quit. If you mainly smoke at work, quit on the weekend, so you have a few days to adjust to the change. T = Tell family, friends, and co-workers that you plan to quit. Let your friends and family in on your plan to quit smoking and tell them you need their support and encouragement to stop. Look for a quit gokul who wants to stop smoking as well. You can help each other get through the rough times. A = Anticipate and plan for the challenges you'll face while quitting. Most people who begin smoking again do so within the first 3 months. You can help yourself make it through by preparing ahead for common challenges, such as nicotine withdrawal and cigarette cravings. R = Remove cigarettes and other tobacco products from your home, car, and work. Throw away all your cigarettes (no emergency pack!), lighters, ashtrays, and matches. Wash your clothes and freshen up anything that smells like smoke. Sha mpoo your car, clean your drapes and carpet, and steam your furniture. T = Talk to your doctor about getting help to quit. Your doctor can prescribe medication to help with withdrawal and suggest other alternatives. If you can't see a doctor, you can get many products over the counter at your local pharmacy or grocery store, including the nicotine patch, nicotine lozenges, and nicotine gum. Resources for Quitting Smoking: <https://www.[place].gov/documents/[facility]/Quit_Tobacco_Resources_for_patients_313 480_7.pdf> Supplementation: Take recommended dosages of Vitamin D and Calcium to help fortify your bones and help them to heal. See your health maintenance packet for dosages and recommended levels. DVT/VTE prophylaxis: You will be given compression stockings from the hospital. Wear these daily for the first two weeks after surgery. You may take them off at night. You may be prescribed a medication to help thin your blood. Take this as directed. If you are not prescribed this medication, early and frequent ambulation has been shown to be the best prophylaxis to deep vein thrombosis and sequelae related to this event. Discharge Disposition: HOME SELF-CARE
[2022-08-19] MEDS: GABAPENTIN 300 MG CAP PO SCH (09:30)
[2022-08-19] MEDS: LEVOTHYROXINE 125 MCG TAB PO SCH (09:30)
[2022-08-19] MEDS ORDERED: DEXAMETHASONE SOD PHOSPHATE 4 MG/ML 1 ML VIAL IVP SCH (12:00)
== END 2022-08-19 10:44 | disposition home or self-care (01) ==
LOC: OR 08:17 → 5NMEDONC 14:58 → OR 08-18 11:45 → 5NMEDONC 08-19 10:40
PROVIDERS: ADMIT Orthopaedic Surgery; ATTEND Orthopaedic Surgery
DX: M47.22 Other spondylosis with radiculopathy, cervical region (principal); M48.02 Spinal stenosis, cervical region; M25.78 Osteophyte, vertebrae; M40.209 Unspecified kyphosis, site unspecified; K59.00 Constipation, unspecified; D72.829 Elevated white blood cell count, unspecified; E03.9 Hypothyroidism, unspecified; Z87.891 Personal history of nicotine dependence; Z79.890 Hormone replacement therapy; Z82.49 Family history of ischemic heart disease and other diseases of the circulatory system; Z56.0 Unemployment, unspecified
CPT/HCPCS: 97161; 86900; 86901; 80048; 85025 ×2; 86850; 72040; 72125; 22551; 22552 ×3; 22853 ×4; 22846; 63081; 20930; 20936; G0378 ×2; C1713; C1762 ×2; J2250; J0330; J1200; J1100 ×4; J0690 ×3; J2405 ×2; J3010; J1170; J2704; J2001

== ENCOUNTER → 2023-06-30 | Outpatient (CLI) | payer OTHER ==
[2023-06-30 12:10] LABS: Basophils % (A) 1 %; Eosinophils # (A) 0.1 k/uL (0-0.7); Eosinophils % (A) 2 %; HCT 46.7 % (39.0-53.0); HGB 15.5 gm/dL (13.0-17.5); Lymphocytes # (A) 1.4 k/uL (1.0-4.8); Lymphocytes % (A) 35 %; MCH 29.2 pg (25.0-35.0); MCHC 33.2 g/dL (31.0-37.0); MCV 88.1 fL (80.0-100.0); Mean Platelet Volume 7.4; Monocytes # (A) 0.3 k/uL (0-1.0); Monocytes % (A) 8 %; Neutrophils # (A) 2.1 k/uL (1.3-7.7); Neutrophils % (A) 51 %; Platelet Count 230 k/uL (150-450); RBC 5.31 m/uL (4.30-5.90); RDW 12.6 % (11.5-15.5); WBC 4.1 k/uL (3.8-10.6)
[2023-06-30 12:26] LABS: African American GFR (CKD) 85 (>60 ml/min/1.73 sqM); Anion Gap 9 mmol/L; Blood Urea Nitrogen 14 mg/dL (9-20); Calcium 9.8 mg/dL (8.4-10.2); Carbon Dioxide 27 mmol/L (22-30); Chloride 104 mmol/L (98-107); Glucose 91 mg/dL (74-99); Non-African American GFR(CKD) 73 (>60 ml/min/1.73 sqM); Potassium 4.6 mmol/L (3.5-5.1); Sodium 140 mmol/L (137-145)
[2023-06-30 12:46] LABS: Prothrombin Time 10.4 sec (9.0-12.0)
== END ==
LOC: PAT 10:38
PROVIDERS: ATTEND Orthopaedic Surgery
DX: Z01.818 Encounter for other preprocedural examination (principal); M47.26 Other spondylosis with radiculopathy, lumbar region; M43.16 Spondylolisthesis, lumbar region; Z22.322 Carrier or suspected carrier of Methicillin resistant Staphylococcus aureus
CPT/HCPCS: 80048; 85025; 85610; 87070

== ENCOUNTER → 2023-08-05 | Outpatient (CLI) | payer OTHER ==
--- NOTE | 2023-08-05 12:51 | CT ---
EXAMINATION TYPE: CT lumbar spine wo con DATE OF EXAM: 08/05/2023 12:16 PM COMPARISON: MRI 02/25/2022 HISTORY: Lower back pain for over three years no specific injury CT DLP: 1772.60 mGycm Automated exposure control for dose reduction was used. There are multilevel Schmorl's nodes. The disc space appears preserved at all levels with grade 1 ret rolisthesis of L5 relative to S1. Unenhanced CT of the lumbar spine was performed. Bone and soft tissue window settings are submitted as well as coronal and sagittal reconstructions. L1-L2: Normal disc space height. No disc herniation protrusion or central stenosis. No facet joint arthropathy. No evidence for foraminal encroachment. 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 L2-L3: Normal disc space height. No disc herniation protrusion or central stenosis. No facet joint arthropathy. No evidence for foraminal encroachment. L3-L4: Diffuse disc bulging with hypertrophic change of the facets. Moderate canal canal stenosis and bilateral foraminal approach. L4-L5: Diffuse disc bulging with advanced facet arthropathy and ligamentum flavum hypertrophy. Severe canal stenosis and bilateral foraminal encroachment. L5-S1: Retrolisthesis of L5 relative to S1 with hypertrophic facet arthropathy. No definite disc mindy iation or canal stenosis. Moderate bilateral foraminal encroachment. IMPRESSION: 1. Disc bulging and hypertrophic changes at L3-4 and L4-5 result in moderate canal stenosis L3-L4 and severe severe canal stenosis L4-L5. Bilateral foraminal encroachment as discussed above. 2. Retrolisthesis of L5 relative to S1 with hypertrophic arthropathy. Moderate bilateral foraminal en largement.
== END | disposition home or self-care (01) ==
LOC: RADCTMAIN 11:59
PROVIDERS: ATTEND Orthopaedic Surgery
DX: M47.16 Other spondylosis with myelopathy, lumbar region (principal); M51.16 Intervertebral disc disorders with radiculopathy, lumbar region; M43.17 Spondylolisthesis, lumbosacral region
CPT/HCPCS: 72131

== ENCOUNTER → 2023-08-29 | Outpatient (CLI) | payer OTHER ==
[2023-08-29 15:32] LABS: HCT 43.8 % (39.6-50.0); HGB 14.7 d/dL (13.0-17.0); MCH 28.6 pg (27.0-32.0); MCHC 33.6 d/dL (32.0-37.0); MCV 85.2 FL (80.0-97.0); Mean Platelet Volume 9.4 FL (9.5-12.2); NRBC Per 100 WBC 0 X 10*3/uL (0.00-0.01); Platelet Count 225 X 10*3/uL (140-440); RBC 5.14 X 10*6/uL (4.40-5.60); RDW 12.5 % (11.5-14.5); WBC 4.29 X 10*3/uL (4.50-10.00)
[2023-08-29 15:50] LABS: ALT 28 U/L (10-49); AST 24 U/L (14-35); Albumin 4.9 d/dL (3.8-4.9); Albumin/Globulin Ratio 2.04 Ratio (1.60-3.17); Alkaline Phosphatase 58 U/L (41-126); BUN/Creat Ratio 14.58 Ratio (12.00-20.00); Blood Urea Nitrogen 17.5 mg/dL (9.0-27.0); Calcium 10.1 mg/dL (8.7-10.3); Carbon Dioxide 25.4 mmol/L (21.6-31.8); Chloride 102 mmol/L (96-109); Globulin 2.4 d/dL (1.6-3.3); Glucose 97 mg/dL (70-110); Potassium 4.7 mmol/L (3.5-5.5); Sodium 140 mmol/L (135-145); Total Bilirubin 0.4 mg/dL (0.3-1.2); Total Protein 7.3 d/dL (6.2-8.2)
[2023-08-29 18:55] LABS: INR <0.93 sec (0.93-1.11); Prothrombin Time 9.9 sec (9.9-11.9)
== END | disposition home or self-care (01) ==
LOC: LABWHC1 08:15
PROVIDERS: ATTEND Orthopaedic Surgery
DX: M47.817 Spondylosis without myelopathy or radiculopathy, lumbosacral region (principal); M48.061 Spinal stenosis, lumbar region without neurogenic claudication
CPT/HCPCS: 36415; 80053; 82306; 85027; 85610; 86850; 86900; 86901; 87070

== ENCOUNTER 2023-09-02 10:37 | Observation (INO) | payer OTHER ==
[2023-08-29 13:18] VITALS: BMI 34.2
[~2023-09-02 10:37] MED LIST changes: -LIDOCAINE 1% (10MG/ML) FOR IV START INTRADERMA PRN; +MIDAZOLAM 2 MG/2 ML VIAL IV PRN; +TRANEXAMIC 1,000 MG/100ML-NACL 1,000 MG in SALINE 1 100ML.BAG IVPB PRN; -TRANEXAMIC ACID IN NACL,ISO-OS 1,000 MG in SALINE 1 100ML.BAG IVPB PRN
[2023-09-02] MEDS: LACTATED RINGERS 1,000 ML IV SCH (11:07)
[2023-09-02] MEDS ORDERED: GLYCOPYRROLATE 0.2 MG/ML 2 ML VIAL ONE (12:32)
[2023-09-02] MEDS ORDERED: HYDROmorphone (PF) 1 MG/ML ONE (12:32)
[2023-09-02] MEDS ORDERED: NEOSTIGMINE 1 MG/ML 10 ML VIAL ONE (12:32)
[2023-09-02] MEDS ORDERED: KETAMINE HCL IN 0.9 % NACL 50 MG/5 ML SYRINGE ONE (12:32)
[2023-09-02] MEDS ORDERED: TRANEXAMIC 1,000 MG/100ML-NACL PREMIX BAG ONE (12:32)
[2023-09-02] MEDS ORDERED: ROCURONIUM 10 MG/ML (5 ML VIAL) IV ONE (12:32)
[2023-09-02] MEDS ORDERED: PROPOFOL 10 MG/ML 20 ML VIAL IV ONE (12:32)
[2023-09-02] MEDS ORDERED: fentaNYL (PF) 50 MCG/ML 2 ML AMP ONE (12:32)
[2023-09-02] MEDS ORDERED: LIDOCAINE 1% INJ 10MG/ML (20 ML MDV) ONE (12:32)
[2023-09-02] MEDS ORDERED: MIDAZOLAM 2 MG/2 ML VIAL ONE (12:32)
[2023-09-02] MEDS ORDERED: SUCCINYLCHOLINE CHLORIDE 200 MG/10 ML VIAL IV ONE (12:32)
[2023-09-02] MEDS ORDERED: GELATIN SPONGE,ABSORB (LARGE) 1 EACH SPONGE MISCELLANE ONE (13:21)
[2023-09-02] MEDS ORDERED: THROMBIN (BOVINE) 5,000 UNIT VIAL MISCELLANE ONE (13:21)
[2023-09-02] MEDS ORDERED: ceFAZolin 3,000 MG in SODIUM CHLORIDE 0.9% IRRIGATIO 3,000 ML IRRIGATION ONE (13:23)
[2023-09-02] MEDS ORDERED: GENTAMICIN 80 MG in SODIUM CHLORIDE 0.9% IRRIGATIO 3,000 ML IRRIGATION ONE (13:23)
[2023-09-02] MEDS ORDERED: VANCOMYCIN 1,000 MG VIAL MISCELLANE ONE (15:26)
[2023-09-02] MEDS ORDERED: LACTATED RINGERS 1,000 ML IV ONE (15:38)
--- NOTE | 2023-09-02 15:45 | XR ---
Intraoperative/procedural fluoroscopic services were provided for lumbar fusion. Total fluoroscopy ti me is 51.4 seconds with a total of 10 submitted images to PACS. Total DAP 16.861 Gycm2. Please see t thierno operative note for further details.
--- NOTE | 2023-09-02 15:50 | P.OP ---
Date of Procedure: 09/02/23 Preoperative Diagnosis: 1. L4-S1 SPONDYLOSIS WITH STENOSIS FORAMINAL 2. DEGENERATIVE DISC DISEASE 3. LE RADICULOPATHY WITH WEAKNESS 4. LOW BACK PAIN Postoperative Diagnosis: 1. L4-S1 SPONDYLOSIS WITH STENOSIS FORAMINAL 2. DEGENERATIVE DISC DISEASE 3. LE RADICULOPATHY WITH WEAKNESS 4. LOW BACK PAIN Procedure(s) Performed: 1. L4-5, L5-S1 POSTERIOLATERAL AND INTERBODY FUSION (12997, 26514) 2. INSTRUMENTATION L4-S1 (99641) 3. L4-5, L5-S1 LAMINOFORAMINOTOMY FOR DECOMPRESSION AND CAGE PLACEMENT (89738, 19758) 4. INSERTION OF BIOMECHANICAL DEVICES L4-5, L5-S1 (08332 X2) 5. USE OF August NAVIGATION FOR SCREW PLACEMENT (15313) USE OF IONM ALL SCREWS TESTING >16 mA Implants: -TINY EVEREST SCREW AND PRIYANKA SYSTEM -GLOBUS SABLE CAGES X2 7-14 MM 15 DEG, LONG -MAGNATOS, IFACTOR, ALLOCELL, ARTHROCELL, VENTRIS, AUTOGRAFT Anesthesia: GETA Surgeon: Zurdo Toro Radar Technician #1: Ping Mcneil (Was present and assisted with all aspects of the case from positioning to closure) Estimated Blood Loss (ml): 300 IV fluids (ml): 2,500 Urine output (ml): 350 Pathology: none sent Condition: stable Disposition: PACU Indications for Procedure: Mr. Buckner is presenting for evaluation of low back and lower extremity pain, bilateral lower extremity numbness and tingling. It was my pleasure to have seen and examined Mr. Buckner. In our visit today we have had a chance to go over subjective complaints, physical examination findings and treatments including the natural course history without intervention and various interventional options. The patients imaging demonstrates: lumbosacral complete films 06/25/2020: images reviewed. This demonstrates grade 1 spondylolisthesis at L4-L5 which is mobile on flexion extension films with spondylosis and facet arthrosis. There is spondylosis of L5-S1 as well. flattening of the normal lumbar lordosis is noted with retrolisthesis L5-S1. AP pelvis demonstrates congruent level pelvis no fracture MRI from an outside facility lumbar spine 02/25/2022: images reviewed with patient. Associated grade 1 spondylolisthesis L4 and L5 with disc collapse facet hypertrophy ligamentum flavum hypertrophy and a large facet cyst causing moderate to severe stenosis centrally as well as foraminally. There is spondylosis L5-S1 with retrolisthesis L5 on S1. There is disc collapse I collapse disc desiccation and facet hypertrophy and ligamentum flavum hypertrophy contributing as well to the spondylotic changes. There is flattening of the normal lumbar lordosis due to these changes. There is mild spondylosis L3-L4. No fractures or lesions. On physical exam, Mr. Buckner demonstrates: The patient notes ongoing low back pain for the past several months with no known injury or trauma to indicate an exact onset of his symptoms. The patient reports that his low back pain radiates down into the bilateral lower extremities, associated with numbness and tingling. The patient notes that his lower extremity paresthesias are exacerbated when walking or standing. The patient notes that his current symptoms make it very difficult for him to complete many of is activities of daily living. The patient reports experiencing severe sleep disturbances due to his ongoing pain and associated symptoms. The patient notes that his symptoms have become intractable. I have explained to the patient that as their condition progresses it will cause further neurological deficits and eventual paralysis. Based on the patients imaging, physical exam, and the rapid progression and disabling nature of their symptoms, at this time I recommend surgery in the form of a: L4-S1 decompression and fusion. I discussed the risk and benefits of this procedure at length with Mr. Buckner. The patient agreed to considered pursuing the procedure above mentioned. Prior to surgery, she should follow up with her PCP (Cardio, ID, IM etc) for clearance. Questions were invited and answered, and the patient wishes to proceed as outlined below. Currently, I am recommendin.L4-S1 decompression and fusion Description of Procedure: L4-S1 open Decompression and fusion (stacey) The patient was seen and examined in the preoperative area. All preoperative protocols were followed. Informed consent was obtained, risks and benefits of the procedure were discussed at length. Risks including bleeding infection damage to the surrounding tissue and risk of reoperation were discussed with the patient. Risk of anesthesia up to and including was discussed with the patient. These are outlined in the risk review. They were willing to accept these risks and all the risks of surgery. The patient was given a weight-based dose of antibiotics in the form of 2 g Ancef. The patient was seen and evaluated by the anesthesia team who deemed them fit for surgery. The site was marked, the patient was willing to proceed with the procedure. The patient was transferred to the operative suite by the Department of anesthesia. They were then drifted off to sleep by the department anesthesia and GETA was performed. The patient tolerated this well. Lorenzo catheter was placed by nursing staff, a-traumatically. Once confirmation of lines and ventilation the patient was transferred to a prone Danial table very carefully. All bony prominences including wrists, elbows, axilla, chest, hips, and thighs, and feet were padded very well. Special attention was paid to the genitalia, and these were padded accordingly. SCDs were placed on bilateral lower extremities and were connected. Arms were well padded and placed on arm boards up and out in the 90/90 position. Once in position, again we confirmed good ventilation capabilities and that lines were running appropriately. The patients Lumbar spine was then exposed. 1010s were placed outlining the incision site. Standard alcohol was used to clean the incision site and allowed to dry. C-arm was used to needle localize the pedicles at L4-S1 and bio-july the patient and confirm level for incision which was marked with a skin marker. Operative briefing was performed with all teams and everyone in agreement to pr oceed. The patient was then prepped and draped in a normal sterile fashion. Timeout was then performed, and all parties agreed with the procedure to be performed. Midline skin incision was made over the previously bio-marked area and dissection taken down over the SP of L3-S1. L4-S1 was taken out over facet joints and TPs and a penfield 4 used to july the L4 pedicle. Lateral image used to confirm levels. Once confirmed, screws were proceeded to be placed b/l at pedicles from L4-S1 using [employer] Navigation. An SP clamp was used, 3D C arm spin obtained and confirmed to be accurate. Once this was confirmed screws were placed using a navigated rico, navigated awl-tap and navigated otr van cdl truck driver. Once screws were placed they were confirmed to be in good position using AP and Lateral fluoroscopy. The wound was then irrigated. Screws were tested and all tested above 20 mA. We then proceeded to decompression and cage placement. Attention was then turned to interbody fusion at L5-S1. Bilateral laminectomy, complete facetectomy and foraminotomy performed at L5-S1 using high speed rico and Kerrison rongeur. The ligamentum was removed and the dural sac decompressed. Exiting and traversing roots visualized and decompressed. Neural elements were then protected, and disc space accessed with an osteotome. Sequential shaving then done under lateral imaging and complete discectomy performed using calixto, pituitary and curette. Once good bleeding endplates accomplished and good height denominational with trials, a combination of autograft, allograft and synthetic placed anterior in the disc space. The cage was then selected and impacted into place under lateral imaging. The cage was then expanded restoring height, lordosis and alignment. The cage was backfilled with bone graft through a funnel. The conveyor system operator was removed and the area inspected. Good cage placement, stable cage and no injuries. Area was irrigated copiously, and meticulous hemostasis achieved. The tubular retractor was then removed under direct visualization. Attention was then turned to interbody fusion at L4-5. Bilateral laminectomy, complete facetectomy and foraminotomy performed at L4-5 using high speed rico and Kerrison rongeur. The ligamentum was removed and the dural sac decompressed. Exiting and traversing roots visualized and decompressed. Neural elements were then protected, and disc space accessed with an osteotome. Sequential shaving then done under lateral imaging and complete discectomy performed using calixto, pituitary and curette. Once good bleeding endplates accomplished and good height denominational with trials, a combination of autograft, allograft and synthetic placed anterior in the disc space. The cage was then selected and impacted into place under lateral imaging. The cage was then expanded restoring height, lordosis and alignment. The cage was backfilled with bone graft through a funnel. The conveyor system operator was removed and the area inspected. Good cage placement, stable cage and no injuries. Area was irrigated copiously, and meticulous hemostasis achieved. The wound and disc spaces were irrigated and meticulous hemostasis achieved. Rods were then sized and selected and placed into S1 screws b/l. Set screws locked these in place and then sequentially reduced into L4 and L5 b/l for alignment denominational. This was accomplished. Set screws were then all placed and final tightened. A cross link was selected and placed and final tightened. TPs were then decorticated with a high speed rico. The wound was irrigated with 3L Ancef irrigation, 3L gentamicin irrigation and 3L NSS. Surgery was placed over the dura. Autograft and MagnatOs then placed in the posterolateral gutters and impacted into place. Deep drain placed and secured to the skin. Final images confirmed good placement of hardware and good reduction of listhesis as well as denominational of height and lordosis. Fascia was then closed with #1 PDS. Deep subq closed with 0 Vicryl. Superficial subq closed with 2-0 Vicryl and skin with geovanna. Wound edges approximated very well. Wound was then cleaned with alcohol and dried. Wounds dressed with Optifoam dressings. The patient was then transferred off the table back to their hospital bed a- traumatically. They were extubated by the department of anesthesia. They were then transferred to PACU in stable condition having tolerated the procedure with no complications.
[2023-09-02] MEDS ORDERED: ONDANSETRON 4 MG/2 ML VIAL IVP PRN (15:53)
[2023-09-02] MEDS ORDERED: HYDROcodone/APAP 10-325MG 1 EACH TAB PO PRN (15:53)
[2023-09-02] MEDS ORDERED: bisacodyL 10 MG SUPP RECTAL PRN (15:53)
--- NOTE | 2023-09-02 15:53 | P.HPOR ---
History of Present Illness H&P Date: 09/02/23 .T:Title: [facility] Date of :[birth year] R14 Allergies: Age: 52 year Height: 5'10" Weight: 225 lbs BP:/ BMI: 32.28 kg/m2 Occupation: Unemployed VAS: 7 CHIEF COMPLAINT: low back pain DOI: N/A DOS: None Duration of current treatment regiment: N/A HISTORY : Xrays New xrays taken in office Trauma or injury No Work-Related No Pain description aching, sharp. Location diffuse Patient notes that their pain radiates to bilateral lower extremities Activity Modification yes Hand Dominance right TREATMENTS COMPLETED: 6 weeks of PT completed? Month and Year of last PT date? No Physician directed home exercise completed? yes Medications No List: none Alternative interventions Chiropractic: No Massage therapy: No R.I.C.E: yes Brace: No Injections Yes How many? several Did they help? No RFA: No SUBJECTI VE: Patient returns to the office today for a pre-operative appointment for his L4- S1 decompression and fusion. Patient notes no changes to his symptoms since his last appointment. The patient continues to report ongoing low back pain with no known injury or trauma to indicate an exact onset of his symptoms. Patient also continues to note pain that radiates down into the bilateral lower extremities, associated with numbness and tingling. In the left lower extremity patient notes pain from the hip to foot and in the right lower extremity patient notes pain from the knee to the foot. The patient notes that his lower extremity paresthesias are exacerbated when walking or standing. Patient's current symptoms make it very difficult for him to complete many of is activities of daily living. The patient reports experiencing severe sleep disturbances due to his ongoing pain and associated symptoms. The patient has also trialed conservative treatment measures in the form of epidural steroid injections, at home stretches/exercises, at home heat/ice therapies, and activity modification, all with no significant or sustained relief. The patient is not currently taking any pain medications. The patient denies experiencing any fever, chills, or shortness of breath. The patient ambulates independently today. HPI: Patient presents to the office today for evaluation of his low back pain. The patient notes ongoing low back pain for the past several months with no known injury or trauma to indicate an exact onset of his symptoms. The patient reports that his low back pain radiates down into the bilateral lower extremities, associated with numbness and tingling. The patient notes that his lower extremity paresthesias are exacerbated when walking or standing. The patient notes that his current symptoms make it very difficult for him to complete many of is activities of daily living. The patient reports experiencing severe sleep disturbances due to his ongoing pain and associated symptoms. The patient notes that his symptoms have become intractable. The patient recently underwent L4-5 epidural steroid injections. He notes that the injections provided him with 80% relief of low back pain and approximately 20% relief of lower extremity symptoms for about 4 to 5 days. The patient has also trialed conservative treatment measures in the form of at home stretches/exercises, at home heat/ice therapies, and activity modification, all with no significant or sustained relief. The patient is not currently taking any pain medications. The patient denies experiencing any fever, chills, or shortness of breath. The patient ambulates independently today. The patients' past social, medical, family, surgical history, as well as review of systems, have been reviewed. Please refer to the Neurosurgery History and Physical form that has been scanned in to our electronic medical record system. 14 points review of systems completed and as stated in HPI, all other systems reviewed are negative. Social History: Reviewed, see appropriate section of the chart for details. P3 Family History: Reviewed, see appropriate section of the chart for details. P2 Past Medical History: Reviewed, see appropriate section of the chart for details. P1 Current Medications: Rx: levothyroxine Ref: 0 P1 PHYSICAL EXAMINATION: General: Awake, alert, appropriate for age, in no acute distress. HEENT: No unusual neck masses around region of lateral neck triangle, thyroid, supraclavicular groove Heart: Regular rate and rhythm, normal S1, S2 and no murmur/gallop. Lungs: Clear to auscultation bilaterally with no use of accessory muscles. Extremities: Skin warm and dry without acute lesions, coloration, temperature, skin intact, no tenderness or erythema Integument: Hairy patches: ABSENT Dorsal skin dimples: ABSENT Cafe au lait spots: ABSENT Palpation: Please see Pain drawing on Intake sheet for further detail. Midline spinal tenderness: No E6 Cervical Tenderness: No E6 Paralumbar tenderness: No E6 Parathoracic tenderness: No E6 Buttocks tenderness: No E6 POSTURAL and MUSCULO-SKELETAL EVALUATION: Coronal Balance: NEUTRAL Recumbent testing: Patient is able to lay flat on back Sagittal Balance: NEUTRAL Shoulder Profile: LEVEL Pelvic Girdle: LEVEL Neck ROM: UNRESTRICTED Lumbar ROM: UNRESTRICTED Shoulder ROM: Symmetrical Hip ROM: Symmetrical Knee ROM: Symmetrical Hands: Normal appearance, symmetrical Feet: Normal appearance, Symmetrical VASCULAR STATUS : LEFT RIGHT Wrist Pulses INTACT INTACT Pedal Pulses (Dors. pedis & post.tibialis) INTACT INTACT Color NORMAL NORMAL Edema Absent Absent NEUROLOGIC EXAMINATION: Mental Status:Awake and alert, fully oriented, with normal attention, concentration and memory, and fluent, appropriate speech. Cranial Nerves: I: Olfactory not tested. II: Visual acuity normal, no visual field deficit noted with confrontation. III,IV: Normal pupillary reflexes & intact extraocular movements without nystagmus. V,: Intact symmetrical facial sensation. VII: Intact symmetrical facial motor movement VIII: Hearing intact. IX,X: Intact gag, swallow, & normal voice. XI: Sternocleidomastoid, trapezius function intact. XII: Tongue midline with normal movements. L'hermitte's Sign: Negative / absent Spurling'Sign: Absent bilaterally. Cubital percussion test: Absent bilaterally. Hutchison-Tinel sign - Carpal region: Absent bilaterally. Straight Leg Raising: Absent bilaterally. Crossed straight leg raise: negative O8 MOTOR EXAM (0-5/5, N/T Muscle appearance: Symmetrical, without signs of atrophy or dystrophy UPPER EXTREMITY RIGHT LEFT Shoulder Abduction 5/5 5/5 Biceps 5/5 5/5 Triceps 5/5 5/5 Wrist Extension 5/5 5/5 Hand Intrnsics 5/5 5/5 Box Blank Machine Feeder 5/5 5/5 Hand and finger dexterity intact bilaterally? yes Disdiadochokinesis examination negative bilaterally? yes LOWER EXTREMITY RIGHT LEFT Hip Flexion 4/5 4/5 Knee Extension 4/5 4/5 Knee Flexion 4/5 4/5 Dorsiflexion 4/5 4/5 Plantarflexion 4/5 4/5 EHL 4/5 4/5 FHL 4/5 4/5 Toe heel walk / heel-toe walk intact while maintaining satisfactory balance? No Squatting/straightening w/o assistance to a min of 60 degree knee flexion? No Single leg stance: intact REFLEXES(0-4/2, NT)Upper Extremity Lower Extremity Right 2 2 Left 2 2 Pathological Reflexes RIGHT LEFT Hutchison's Absent Absent Clonus Absent Absent Babinski Absent Absent Sensory system (0-4, N/T) Test type RU ARELY RL LL Joint-Position 2 2 2 2 Vibration 2 2 2 2 Pain & LT sense 2 2 2 2 Dermatomal Deficit: None None None None Gait and Functional Evaluation: Ambulatory aids: Independent Romberg's test: Intact bilaterally Steady Gait RADIOGRAPHIC STUDIES: lumbosacral complete films 06/25/2020: images reviewed. This demonstrates grade 1 spondylolisthesis at L4-L5 which is mobile on flexion extension films with spondylosis and facet arthrosis. There is spondylosis of L5-S1 as well. flattening of the normal lumbar lordosis is noted with retrolisthesis L5-S1. AP pelvis demonstrates congruent level pelvis no fracture MRI from an outside facility lumbar spine 02/25/2022: images reviewed with patient. Associated grade 1 spondylolisthesis L4 and L5 wi th disc collapse facet hypertrophy ligamentum flavum hypertrophy and a large facet cyst causing moderate to severe stenosis centrally as well as foraminally. There is spondylosis L5-S1 with retrolisthesis L5 on S1. There is disc collapse I collapse disc desiccation and facet hypertrophy and ligamentum flavum hypertrophy contributing as well to the spondylotic changes. There is flattening of the normal lumbar lordosis due to these changes. There is mild spondylosis L3-L4. No fractures or lesions. Xrays of the Lumbar spine AP/LAT/FLEX/EXT with AP pelvis on 06/09/23 at [facility]: Images reviewed. These demonstrate spondylosis from L4-S1 with severe spondylosis, disc height collapse, facet arthrosis and degeneration. There is a Grade I spondylolisthesis of L4-5 due to pars elongation and facet insufficiency which accentuates on Flexion films in both translation and segmental kyphosis. There is severe foraminal stenosis at both of these levels as well bilaterally noted. There is likely pars defect at L4 b/l contributing as well due to microfracture. CT would better characterize this. Compared to MRI this is evident at the pars of L4 b/l. No other fractures noted. No lesions noted. AP pelvis shows congruent level pelvis without fracture. IMPRESSION: It was my pleasure to have seen and examined Lincoln. I reviewed the patient's clinical syndrome, physical findings, and imaging studies during the appointment today. It is my impression that the patient has a diagnosis of. 1. Grade I spondylolisthesis of L4 on L5 2.L4-5 stenosis with spondylosis 3. Neurogenic claudication 4. Low back pain I outlined the natural course history without intervention and various interventional options. PLAN: Based on my findings I suggest the following course of action: - Lumbar CT scan without contrast ordered today - New order for blood labs placed today -I discussed treatment options with the patient, including operative and non- operative options, and they have elected to proceed with the following surgical procedure: L4-S1 decompression and fusion The indications, risks, benefits, and alternatives to surgery were discussed with the patient and family at length. Specifically (but not limited to) the risks of infection, stiffness, recurrence of symptoms, need for revision surgery, local numbness, neurovascular injury, and blood clots were discussed. The patient's questions were answered.The decision to proceed was made. Consent will be obtained for the procedure. - Ambulate daily. - Take medications as directed. - Ice and rest for pain and swelling control. Spine Surgery Risk Review Mr. Buckner is presenting for evaluation of low back and lower extremity pain, bilateral lower extremity numbness and tingling. It was my pleasure to have seen and examined Mr. Buckner. In our visit today we have had a chance to go over subjective complaints, physical examination findings and treatments including the natural course histo ry without intervention and various interventional options. The patients imaging demonstrates: lumbosacral complete films 06/25/2020: images reviewed. This demonstrates grade 1 spondylolisthesis at L4-L5 which is mobile on flexion extension films with spondylosis and facet arthrosis. There is spondylosis of L5-S1 as well. flattening of the normal lumbar lordosis is noted with retrolisthesis L5-S1. AP pelvis demonstrates congruent level pelvis no fracture MRI from an outside facility lumbar spine 02/25/2022: images reviewed with patient. Associated grade 1 spondylolisthesis L4 and L5 with disc collapse facet hypertrophy ligamentum flavum hypertrophy and a large facet cyst causing moderate to severe stenosis centrally as well as foraminally. There is spondylosis L5-S1 with retrolisthesis L5 on S1. There is disc collapse I collapse disc desiccation and facet hypertrophy and ligamentum flavum hypertrophy contributing as well to the spondylotic changes. There is flattening of the normal lumbar lordosis due to these changes. There is mild spondylosis L3-L4. No fractures or lesions. On physical exam, Mr. Buckner demonstrates: The patient notes ongoing low back pain for the past several months with no known injury or trauma to indicate an exact onset of his symptoms. The patient reports that his low back pain radiates down into the bilateral lower extremities, associated with numbness and tingling. The patient notes that his lower extremity paresthesias are exacerbated when walking or standing. The patient notes that his current symptoms make it very difficult for him to complete many of is activities of daily living. The patient reports experiencing severe sleep disturbances due to his ongoing pain and associated symptoms. The patient notes that his symptoms have become intractable. I have explained to the patient that as their condition progresses it will cause further neurological deficits and eventual paralysis. Based on the patients imaging, physical exam, and the rapid progression and disabling nature of their symptoms, at this time I recommend surgery in the form of a: L4-S1 decompression and fusion. I discussed the risk and benefits of this procedure at length with Mr. Buckner. The patient agreed to considered pursuing the procedure above mentioned. Prior to surgery, she should follow up with her PCP (Cardio, ID, IM etc) for clearance. Questions were invited and answered, and the patient wishes to proceed as outlined below. Currently, I am recommendin.L4-S1 decompression and fusion 2.Follow up with PCP for surgical clearance 3.Review of surgical risks and benefits as well as an educational packet on the proposed surgical procedure. Risks: All surgical procedures come with inherent risks, including those related to positioning, anesthesia, intraoperative findings, and postoperative complications. It is important to understand that surgery does not come with any guarantee of a successful outcome as complications and adverse events are always possible. The patient was given a handout in office today discussing the surgical procedure and risks associated with the intervention, both of which were dis cussed with the patient. These risks include but are not limited to the following: * Experiencing same, different or even worse symptoms in back, neck, arms, or legs compared to before surgery. Requiring further surgery or other forms of treatment presently or at some time in the future at same or other levels of the intended spine surgery. On an extreme but fortunately relatively rare basis severe complication such as blindness, stroke, heart attack, temporary and/or permanent nerve injury, paralysis, coma, or may occur, sometimes without known explanation. Surgical complications may include but are not limited to risk of infection, fluid accumulation in the surgical dissection site, including a seroma or hematoma, that requires additional surgery, wound drainage, bleeding, new numbness or weakness, vision changes/loss, spinal fluid leakage, non-healing and/or infected incision, headaches, difficulty or inability to swallow, hoarseness, hemopneumothorax, pneumothorax, impotence, retrograde ejaculation, vaginal dryness; injury to nerves, spinal cord, blood vessels, lymphatics or other vital organs (i.e., bowel injury, injury to the great vessels); heter otopic bone formation; complications related to the hardware such as screws, rods, cages including misplaced hardware, device failure, instrumentation at the wrong spine level, hardware fracture/breakage, or hardware loosening; vertebral failure of the spinal column above or below the newly placed hardware; retained surgical instrumentations or devices and the need for further surgery. * Medical risks of the planned spine surgery include but are not limited to generalized Infections to the whole body or local areas outside of the surgical site (sepsis), heart attack, bleeding, anaphylaxis, meningitis, seizure, epilepsy, hearing loss, burn bean, laceration of the head or other areas of the body, bruising, hypersensitivity of the skin, bladder over distension; allergic reaction; shoulder injury related to positioning; fat, blood and air clots to other areas of the body like heart, lungs, brain; failure of internal organs such as lungs, kidneys, liver and excessive bleeding. If blood transfusions are necessary, note that transfusions may cause intolerance reactions such as anaphylaxis or other complex reactions. Despite best efforts, the results of spine surgery might not heal in terms of bone, soft tissues such as skin, fascia, ligaments, and joints. Additionally, in order to achieve best possible results, spine surgery may be carried out beyond the initially planned levels and involve decompression, fusion including insertion of hardware at levels other than the original intended area of surgical interest change some portions of the procedure in order to ensure the best possible outcomes. With spine surgery and spinal fusion, there are different off label uses of instrumentation (devices, implants and hardware) as well as biological substances (bone morphogenic proteins, demineralized bone matrix) as well as using extra bone from allograft sources (i.e. cadaver bone) or autograft (iliac crest bone, ribs, or the spine itself). The patient has been given information about these practices and their inherent risks and benefits. [facility] is an educational center that serves as a training facility for neurosurgical and orthopedic COLLECTION MANAGER and Nursing students. Physician assistants are medically trained surgical providers who function in the outpatient, inpatient, and operating room setting under the direct supervision of the attending surgeon. [facility] has multiple operating rooms with single and overlapping rooms running daily. They currently function under the required guidelines as produced by the [facility] Finance Committee with regards to the overlapping rooms and will continue to comply with changes to this policy as they occur. The requirements include and are complied with as follows: (1) the critical portions of the overlapping rooms will not occur at the same time, (2) the attending physician will be physically present during the critical portions of the procedure and immediately available during the entire case, and (3) a back-up attending is designated should the primary attending not be immediately available. The patient has had a chance to review all the listed information, has been given print outs detailing this information, and has had all his/her questions answered to their satisfaction. It was my pleasure to have seen and examined Mr. Buckner. In our visit today we have had a chance to go over my understanding of our patient's current condition, the natural course history without intervention and various interventional options. Questions were invited and answered, and the patient wishes to proceed as outlined above. I have seen and examined the patient for 25 minutes and we have spent more than 50% of the time in repeat and detailed counseling about the patient's condition, its natural course history with out and as much as can be predicted with surgery and re-review of various surgical treatment options. In conclusion, Mr. Buckner requested we proceed with the above suggested surgery and are willing to accept risks and limitations of the suggested surgery as nature of the disease process and our best attempts at treatment for the condition. Thank you again for allowing us to be part of your patient's care. Please don't hesitate to contact me if you have any further questions. Follow-up: Post procedure Patient Education: (Informational booklet, instructions, etc) given at today's appointment: Yes .ED:Patient Education: Y Medications Reviewed: YES In our visit today Mr. Buckner and I have had a chance to go over my understanding of the patient's current condition, the natural course history without intervention and various interventional options. Questions were invited and answered, and the patient wishes to proceed as outlined above. I will be sure to keep you updated afterMrNaresh Buckner returns here for further follow-up. Thank you again for your referral. Please do not hesitate to contact me if you have any further questions. Signed and authenticated by: Zurdo Sawant [facility] [address] [place] [address] This message is confidential, intended only for the named recipient(s) and may contain information that is privileged or exempt from disclosure under applicable law. If you are not the intended recipient(s), you are notified that the dissemination, distribution or copying of this information is strictly prohibited. If you received this message in error, please notify the sender then delete this message. Patient verbalizes understanding of the information discussed. The above note was initiated by Eduardo Wiley, physician recording assistant community manager for Dr. Zurdo Toro. This note has been reviewed by Dr. Toro, who has made his personal changes and impressions for this document. CC: Noe Kern NP # SIGNED BY Zurdo Toro (GOO)07/21/2023 08:10AM Past Medical History Past Medical History: Osteoarthritis (OA), Thyroid Disorder Additional Past Medical History / Comment(s): vertigo History of Any Multi-Drug Resistant Organisms: None Reported Past Surgical History: Cholecystectomy Additional Past Surgical History / Comment(s): benign tumor removed from neck at age 11 yrs, cervical fusion Past Anesthesia/Blood Transfusion Reactions: No Reported Reaction Past Psychological History: No Psychological Hx Reported Additional Psychological History / Comment(s): . Smoking Status: Former smoker Past Alcohol Use History: None Reported Additional Past Alcohol Use History / Comment(s): Quit smoking >25 yrs ago. Past Drug Use History: None Reported Additional Drug Use History / Comment(s): . - Past Family History Father Family Medical History: Myocardial Infarction (CO) Additional Family Medical History / Comment(s): Father of a CO at the age of 50. Mother Additional Family Medical History / Comment(s): Mother has "heart issues and gallbladder disease." Medications and Allergies Home Medications Medication Instructions Recorded Confirmed Type Levothyroxine Sodium 125 mcg PO QAM 08/16/22 08/29/23 History Allergies Allergy/AdvReac Type Severity Reaction Status Date / Time No Known Allergies Allergy Verified 08/29/23 12:51 Physical Examination Osteopathic Statement: *. No significant issues noted on an osteopathic structural exam other than those noted in the History and Physical/Consult.
[2023-09-02] MEDS ORDERED: ACETAMINOPHEN IV (For NPO) 1,000 MG/100 ML VIAL IVPB ONE (16:50)
[2023-09-02] MEDS ORDERED: hydrALAZINE HCL 20 MG/ML 1 ML VIAL IVP ONE (17:37)
[2023-09-02] MEDS: SODIUM CHLORIDE 0.9% 1,000 ML IV SCH (20:45)
[2023-09-02] MEDS: HYDROcodone/APAP 5-325MG 1 EACH TAB PO PRN (20:50)
[2023-09-02] MEDS: CYCLOBENZAPRINE 5 MG TAB PO PRN (22:17)
--- NOTE | 2023-09-03 00:59 | P.CONS ---
History of Present Illness - Reason for Consult Consult date: 09/02/23 - History of Present Illness Patient is a 52-year-old male with a PMH of hypothyroidism who was admitted for scheduled lumbosacral laminectomy with interbody fusion. The patient underwent the procedure earlier today and was seen postoperatively on the surgical unit. He reported excellent control his lower back postsurgical pain at the time of interview, rated at a 3 out of 10. Denied any additional complaints. Reports he has gotten out of bed and has urinated without difficulty. He denies experiencing sore throat, chest discomfort, shortness of breath, fever, chills, cough, nausea, vomiting, abdominal pain, diarrhea. Reports that the only medication he takes is Synthroid. Review of systems: Pertinent positives and negatives as discussed in HPI, a complete review of systems was performed and all other systems are negative. Physical examination: Vital signs reviewed General: non toxic, no distress, appears at stated age, normal weight Derm: no unusual rashes/lesions, warm Head: atraumatic, normocephalic, symmetric Eyes: EOMI, no lid lag, anicteric sclera, pupils equal round reactive to light ENT: Nose and ears atraumatic Neck: No cervical lymphadenopathy, trachea midline, supple Mouth: no lip lesion, mucus membranes moist Cardiovascular: S1S2 reg, no murmur, positive dorsalis pedis pulse bilateral, no edema Lungs: CTA bilateral, no rhonchi, no rales, no accessory muscle use Abdominal: soft, nontender to palpation, no guarding Ext: muscle strength 5 out of 5 in all 4 extremities grossly, no gross muscle atrophy, no contractures, Neuro: CN II-XI grossly intact, no gross focal neuro deficits Psych: Alert, oriented, appropriate affect Assessment: Chronic conditions: Hypothyroidism Status post lumbosacral laminectomy and interbody fusion Plan: Continue with home Synthroid dose 125 g by mouth daily Defer postsurgical care including DVT prophylaxis and pain control to the primary surgery service Past Medical History Past Medical History: Osteoarthritis (OA), Thyroid Disorder Additional Past Medical History / Comment(s): vertigo History of Any Multi-Drug Resistant Organisms: None Reported Past Surgical History: Cholecystectomy Additional Past Surgical History / Comment(s): benign tumor removed from neck at age 11 yrs, cervical fusion, L4-S1 decompression/fusion. Past Anesthesia/Blood Transfusion Reactions: No Reported Reaction Past Psychological History: No Psychological Hx Reported Additional Psychological History / Comment(s): . Smoking Status: Former smoker Past Alcohol Use History: None Reported Additional Past Alcohol Use History / Comment(s): Quit smoking >25 yrs ago. Past Drug Use History: None Reported Additional Drug Use History / Comment(s): . - Past Family History Father Family Medical History: Myocardial Infarction (VT) Additional Family Medical History / Comment(s): Father of a VT at the age of 50. Mother Additional Family Medical History / Comment(s): Mother has "heart issues and gallbladder disease." Medications and Allergies Home Medications Medication Instructions Recorded Confirmed Type Levothyroxine Sodium 125 mcg PO QAM 08/16/22 08/29/23 History Allergies Allergy/AdvReac Type Severity Reaction Status Date / Time No Known Allergies Allergy Verified 09/02/23 10:51 Physical Exam Vitals: Vital Signs Temp Pulse Resp BP Pulse Ox 09/02/23 20:00 97.7 F 80 18 155/84 97 09/02/23 19:04 97.4 F L 82 151/84 94 L 09/02/23 18:57 86 137/89 89 L 09/02/23 18:42 77 124/84 90 L 09/02/23 18:27 77 138/92 93 L 09/02/23 18:00 71 16 153/94 100 09/02/23 17:54 153/90 09/02/23 17:45 71 16 159/97 100 09/02/23 17:30 64 16 165/93 98 09/02/23 17:24 154/95 09/02/23 17:15 64 16 165/93 99 09/02/23 17:00 65 16 167/97 100 09/02/23 16:41 66 16 160/100 98 09/02/23 16:26 73 16 161/90 95 09/02/23 16:07 60 16 161/84 95 09/02/23 15:52 96.8 F L 81 16 117/69 95 09/02/23 11:00 97.8 F 70 16 153/88 98 Intake and Output 09/02/23 09/02/23 09/03/23 14:59 22:59 06:59 Intake Total 1552 0 Output Total 1150 Balance 1552 -1150 Intake: IV 1552 0 Output: Urine 850 Estimated Blood Loss 300 Other: Voiding Method Indwelling Catheter Weight 113.4 kg 113.4 kg
[2023-09-03] MEDS: CYCLOBENZAPRINE 5 MG TAB PO PRN ×2 (05:46→12:55)
[2023-09-03] MEDS: LEVOTHYROXINE 125 MCG TAB PO SCH (05:46)
--- NOTE | 2023-09-03 07:05 | CT ---
EXAMINATION TYPE: CT lumbar spine wo con CT DLP: 1384.4 mGycm, Automated exposure control for dose reduction was used. DATE OF EXAM: 09/03/2023 12:36 AM COMPARISON: CT lumbar spine 08/05/2023, lumbar spine fluoroscopic images 09/02/2023. CLINICAL INDICATION:Male, 52 years old with history of Post-op L4-S1 fusion; PHH, post op L4-S1 fusio n TECHNIQUE: Multiple axial images were obtained from the midportion of T11 through the sacroiliac alma delia nts. Soft tissue and bone windows in coronal and sagittal planes were obtained and reviewed. Contrast used: none. Oral contrast used: none. FINDINGS: There are 5 lumbar type vertebral bodies. Mild retrolisthesis of L3 on L4 and L5 on S1. No evidence of fracture is identified. Postsurgical changes from posterior lumbar fusion L4-S1 with b ilateral pedicular screws and rods with laminectomy and disc fusion cages. Hardware appears intact wi th appropriate alignment. There is associated soft tissue gas, pneumorrhacis, and edema. Skin geovanna identified posterior midline. No sizable fluid collection identified. Right-sided drainage catheter identified with tip near the left posterior elements of L4. Limited evaluation of the spinal canal fr om L4 through S1 secondary to streak artifact from postsurgical change. There is broad-based disc bul ge with ligament flavum buckling and bilateral facet arthropathy resulting in mild central canal sten osis at L3-L4. No significant neural foraminal stenosis at this level. No other region of significant neural foraminal or central canal stenosis identified. Linear atelectasis within the left lower lobe. Small hiatal hernia. Post cholecystectomy changes. Hep atic steatosis. IMPRESSION: Postsurgical changes from L4-S1 posterior lumbar disc fusion. Hardware appears intact with appropriat e alignment. No CT evidence for significant complication.
[2023-09-03 07:59] LABS: Basophils % (A) 0 %; Eosinophils % (A) 0 %; HCT 38.4 % (39.0-53.0); HGB 13.4 gm/dL (13.0-17.5); Lymphocytes # (A) 0.6 k/uL (1.0-4.8); Lymphocytes % (A) 5 %; MCV 85.7 fL (80.0-100.0); Mean Platelet Volume 7.1; Monocytes # (A) 0.9 k/uL (0-1.0); Monocytes % (A) 8 %; Neutrophils # (A) 9.2 k/uL (1.3-7.7); Neutrophils % (A) 85 %; Platelet Count 221 k/uL (150-450); RBC 4.48 m/uL (4.30-5.90); RDW 13.2 % (11.5-15.5); WBC 10.7 k/uL (3.8-10.6)
[2023-09-03 08:26] LABS: African American GFR (CKD) >90 (>60 ml/min/1.73 sqM); Anion Gap 14 mmol/L; Blood Urea Nitrogen 13 mg/dL (9-20); Carbon Dioxide 18 mmol/L (22-30); Chloride 101 mmol/L (98-107); Glucose 127 mg/dL (74-99); Non-African American GFR(CKD) >90 (>60 ml/min/1.73 sqM); Potassium 3.9 mmol/L (3.5-5.1); Sodium 133 mmol/L (137-145)
[2023-09-03] MEDS: HYDROcodone/APAP 5-325MG 1 EACH TAB PO PRN (09:08)
[2023-09-03] MEDS: SENNOSIDES-DOCUSATE SODIUM 1 EACH TAB PO SCH (09:09)
[2023-09-03] MEDS: HYDROmorphone 1 MG/ML 1 ML SYRINGE IVP PRN ×4 (10:26→21:44)
[2023-09-03] MEDS: SODIUM CHLORIDE 0.9% 1,000 ML IV SCH ×2 (10:49→15:38)
--- NOTE | 2023-09-03 11:04 | P.PN ---
Subjective Progress Note Date: 09/03/23 Principal diagnosis: 1. Grade I spondylolisthesis of L4 on L5 2.L4-5 stenosis with spondylosis 3. Neurogenic claudication 4. Low back pain Patient seen and examined this morning. Patient is sitting up in chair. Surgical incision to the lumbar spine, dressing is clean dry and intact. Hemovac is present with 40ml of output overnight. Patient reports that his pain is managed on current regimen. Lorenzo catheter has been removed patient states he has been urinating without any difficulty. Patient is looking forward to working with physical therapy today. LSO brace prescription has been placed in chart. Patient does not need brace to work with therapy. Patient denies any numbness or tingling to bilateral lower extremities. No acute concerns at this time. Objective - Vital Signs Vital signs: Vital Signs Temp 98.1 F 09/03/23 07:05 Pulse 86 09/03/23 07:05 Resp 16 09/03/23 07:05 BP 135/80 09/03/23 07:05 Pulse Ox 93 L 09/03/23 07:05 FiO2 Intake & Output 09/02/23 09/03/23 09/03/23 18:59 06:59 18:59 Intake Total 1552 Output Total 450 840 Balance 1102 -840 Weight 113.4 kg Intake: IV 1552 Output: Drainage 40 Back 40 Urine 150 800 Estimated Blood Loss 300 Other: Voiding Method Indwelling Catheter - Exam Physical Examination General: The patient is awake and alert, in no acute distress Skin: Skin is warm and dry with no obvious rashes or lesions. Surgical incision to the lumbar spine, dressing is clean dry and intact. Hemovac present with 40 mL output overnight. Eye: Pupils are equal, round and reactive to light, extra-ocular movements are intact; there is normal conjunctiva bilaterally. Neck: The neck is supple, there is no tenderness and ROM intact. Cardiovascular: There is a regular rate and rhythm. No murmur, rub or gallop is appreciated. Respiratory: Lungs are clear to auscultation, respirations are non-labored, breath sounds are equal. Gastrointestinal: Soft, non-distended, non-tender abdomen. Back: There is no tenderness to palpation in the midline, paralumbar, parathoracic or buttocks region. There is no obvious deformity . Musculoskeletal: ROM limited secondary to pain and stiffness from surgical procedure. Muscle strength in all major muscle groups of bilateral upper extremities 5/5, bilateral lower extremities 4/5. Neurological: CN 2-12 intact. There are no obvious motor or sensory deficits. Movement and coordination equal and intact. Sensory exam to light touch intact C5-T1 and intact from L2-S1. Reflexes 2/4 in bilateral upper and lower extremities. Negative Hoffmans, babinski, and clonus signs. Psychiatric: Cooperative, appropriate mood & affect, normal judgment. - Labs CBC & Chem 7: 09/03/23 07:05 09/03/23 07:05 Labs: Abnormal Lab Results - Last 24 Hours (Table) 09/03/23 09/03/23 Range/Units 07:05 07:05 WBC 10.7 H (3.8-10.6) k/uL Hct 38.4 L (39.0-53.0) % Neutrophils # 9.2 H (1.3-7.7) k/uL Lymphocytes # 0.6 L (1.0-4.8) k/uL Sodium 133 L (137-145) mmol/L Carbon Dioxide 18 L (22-30) mmol/L Glucose 127 H (74-99) mg/dL Assessment and Plan Assessment: Postop day 1: L4-S1 decompression and fusion 1. Grade I spondylolisthesis of L4 on L5 2.L4-5 stenosis with spondylosis 3. Neurogenic claudication 4. Low back pain Plan: -Appreciate lactation consultant and team management. -Activity: Ambulate QID, OOB all meals, up and about, limit lifting bending twisting to less than 5 lbs. Use walker or cane if needed for stability. -Daily PT/OT, increase ambulation strength and balance. -Brace when up and about, not needed in bed or chair -LSO brace prescription has been placed in chart, patient does not need to work with physical therapy today. -Pain control: Adequate at this time -Meds: reviewed -GI ppx: senna, Miralax -DVT PPX: OK to restart Heparin tonight -Hygiene: Shower today. Maintain dressing clean and dry. Meticulous cleaning after BMs away from the incision site -Drains: Maintain for now. Continue to monitor and record output q shift. -Encourage IS 10x/hr -Dispo: Anticipate discharge home tomorrow vs Fausto with homecare *I reviewed and discussed this case with my attending Dr. Toro, whom has reviewed this chart and films and is in agreement with assessment and plan of care as outlined above. I have personally seen and examined the patient, performed the documentation and the assessment and plan as written. Number of minutes spent on the visit: 20m.
--- NOTE | 2023-09-03 13:26 | P.PN ---
Subjective Progress Note Date: 09/03/23 Hospital course: Patient is a very pleasant 52-year-old male with a past medical history of hypothyroidism, vertigo, chronic neck pain status post cervical fusion, and osteoarthritis. Patient is currently admitted under orthospine surgical team status post L4 through L5 and L5 through S1 posterior lateral and interbody fusion with laminectomy and decompression and cage placement. We are consulted for medical management throughout patient's hospitalization. Physical exam: Patient seen and fully evaluated at bedside this morning. Patient is postop day 1. He was sitting up in a recliner chair at bedside. Patient reports moving "slowly but surely". Patient currently reports moderate postoperative pain but denies having any numbness/tingling/weakness in his extremities. Patient reports urinating without any difficulties and denies having any postoperative nausea or vomiting. Vital signs reviewed and stable. General: Nontoxic, no distress and appears stated age. Derm: Skin warm and dry, normal coloration for ethnicity. Head: Atraumatic, normocephalic and symmetric. Eyes: EOMs intact, no lid lag, and anicteric sclera Mouth: no lip lesions, mucus membranes moist Cardiovascular: regular rate and rhythm with normal S1S2, no murmur, positive posterior tibial pulses bilaterally, and cap refill < 2 seconds. Lungs: Respirations even, regular, and unlabored on room air. Lungs CTA bilaterally, no rhonchi, no rales, no wheezing, and no accessory muscle usage. Abdominal: soft, nontender to palpation, no guarding, no appreciable organomegaly Ext: ROM intact. No gross muscle atrophy, no edema, no contractures Neuro: Speech clear, face symmetrical and CN II-XII grossly intact with no noted focal neuro deficits Psych: Alert and oriented to person, place, time, and situation. Appropriate and pleasant affect. Assessment and Plan of Care: Hyponatremia Sodium 133. Likely low secondary to dehydration as patient was nothing by mouth prior to surgical procedure. Patient remains on gentle IV fluid hydration with 0.9% normal saline at 75 mL's per hour. We will continue to monitor with repeat BMP tomorrow morning and place additional recommendations/orders as indicated based upon these results. Leukocytosis Reactive secondary to surgical procedure. WBC count 10.7 no signs of infection, no need for further intervention at this time. Hypothyroidism -Patient to continue daily medication regimen with levothyroxine 125 g daily. Status post L4 through L5 and L5 through S1 posterior lateral and interbody fusion with laminectomy and decompression with cage placement -Management per primary admitting orthospine surgery team including wound/drain/ dressing care, DVT prophylaxis, pain management, activity advancement, and PT/OT. Data reviewed: Morning labs reviewed. CBC showing mild leukocytosis with WBC count of 10.7 otherwise no significant abnormalities. BMP showing hyponatremia with sodium 133 and Procardia with bicarb of 18. Vital signs reviewed. Blood pressure 135/80, heart rate 86, respiratory rate 16, temperature 98.1F, and SpO2 of 93% on room air. Thank you for allowing us to participate in the care of this pleasant patient. Do not hesitate to contact us with questions. Someone can be reached from the [facility] hospitalist group all hours of the day at [phone] or via [employer]. Patient was seen independently by Nurse Pracitioner. This document was prepared using [email or web address] dictation software. Please allow for errors in executive sous chef, while rare they do occur. Objective - Vital Signs Vital signs: Vital Signs Temp 98.1 F 09/03/23 07:05 Pulse 86 09/03/23 07:05 Resp 16 09/03/23 07:05 BP 135/80 09/03/23 07:05 Pulse Ox 93 L 09/03/23 07:05 FiO2 Intake & Output 09/02/23 09/03/23 09/03/23 18:59 06:59 18:59 Intake Total 1552 Output Total 450 840 Balance 1102 -840 Weight 113.4 kg Intake: IV 1552 Output: Drainage 40 Back 40 Urine 150 800 Estimated Blood Loss 300 Other: Voiding Method Indwelling Catheter - Labs CBC & Chem 7: 09/03/23 07:05 09/03/23 07:05 Labs: Abnormal Lab Results - Last 24 Hours (Table) 09/03/23 09/03/23 Range/Units 07:05 07:05 WBC 10.7 H (3.8-10.6) k/uL Hct 38.4 L (39.0-53.0) % Neutrophils # 9.2 H (1.3-7.7) k/uL Lymphocytes # 0.6 L (1.0-4.8) k/uL Sodium 133 L (137-145) mmol/L Carbon Dioxide 18 L (22-30) mmol/L Glucose 127 H (74-99) mg/dL
[2023-09-04] MEDS: HYDROmorphone 0.5 MG/0.5 ML SYRINGE IVP PRN ×2 (00:58→04:39)
[2023-09-04] MEDS: LACTATED RINGERS 1,000 ML IV SCH (06:03)
[2023-09-04] MEDS: LEVOTHYROXINE 125 MCG TAB PO SCH (06:31)
[2023-09-04 07:31] LABS: HCT 36.6 % (39.0-53.0); HGB 12.8 gm/dL (13.0-17.5); MCH 30.2 pg (25.0-35.0); MCV 86.1 fL (80.0-100.0); Mean Platelet Volume 7.5; Platelet Count 199 k/uL (150-450); RBC 4.25 m/uL (4.30-5.90); RDW 13.3 % (11.5-15.5); WBC 11.2 k/uL (3.8-10.6)
[2023-09-04 07:57] LABS: ALT 29 U/L (4-49); AST 63 U/L (17-59); African American GFR (CKD) >90 (>60 ml/min/1.73 sqM); Albumin 4.2 g/dL (3.5-5.0); Albumin/Globulin Ratio 1.6; Alkaline Phosphatase 52 U/L (38-126); Anion Gap 13 mmol/L; Blood Urea Nitrogen 10 mg/dL (9-20); Calcium 9.1 mg/dL (8.4-10.2); Carbon Dioxide 23 mmol/L (22-30); Chloride 98 mmol/L (98-107); Globulin 2.7 g/dL; Glucose 113 mg/dL (74-99); Magnesium 2.1 mg/dL (1.6-2.3); Non-African American GFR(CKD) >90 (>60 ml/min/1.73 sqM); Potassium 3.8 mmol/L (3.5-5.1); Sodium 134 mmol/L (137-145); Total Bilirubin 0.8 mg/dL (0.2-1.3); Total Protein 6.9 g/dL (6.3-8.2)
[2023-09-04] MEDS: SENNOSIDES-DOCUSATE SODIUM 1 EACH TAB PO SCH (08:12)
[2023-09-04] MEDS: CYCLOBENZAPRINE 5 MG TAB PO PRN (10:25)
--- NOTE | 2023-09-04 13:52 | P.PN ---
Subjective Progress Note Date: 09/04/23 Hospital course: Patient is a very pleasant 52-year-old male with a past medical history of hypothyroidism, vertigo, chronic neck pain status post cervical fusion, and osteoarthritis. Patient is currently admitted under orthospine surgical team status post L4 through L5 and L5 through S1 posterior lateral and interbody fusion with laminectomy and decompression and cage placement. We are consulted for medical management throughout patient's hospitalization. Physical exam: Patient seen and fully evaluated at bedside this morning. Patient is postop day 2.. He was sitting up in a recliner chair at bedside visiting with his brother and [id number] is morning. Patient reports he is doing "a little better today". Patient reports he is still having a very difficult time from lying to sitting and continues to have mild to moderate postoperative pain but denies having any numbness/tingling/weakness in his extremities. Patient reports urinating without any difficulties and denies having any postoperative nausea or vomiting. Vital signs reviewed and stable. General: Nontoxic, no distress and appears stated age. Derm: Skin warm and dry, normal coloration for ethnicity. Head: Atraumatic, normocephalic and symmetric. Eyes: EOMs intact, no lid lag, and anicteric sclera Mouth: no lip lesions, mucus membranes moist Cardiovascular: regular rate and rhythm with normal S1S2, no murmur, positive posterior tibial pulses bilaterally, and cap refill < 2 seconds. Lungs: Respirations even, regular, and unlabored on room air. Lungs CTA bilaterally, no rhonchi, no rales, no wheezing, and no accessory muscle usage. Abdominal: soft, nontender to palpation, no guarding, no appreciable organomegaly Ext: ROM intact. No gross muscle atrophy, no edema, no contractures Neuro: Speech clear, face symmetrical and CN II-XII grossly intact with no noted focal neuro deficits Psych: Alert and oriented to person, place, time, and situation. Appropriate and pleasant affect. Assessment and Plan of Care: Acute postoperative blood loss anemia Leukocytosis, reactive secondary to surgical procedure Hyponatremia, improving -Acute postoperative blood loss anemia with preoperative hemoglobin 14.7 on 08/29/23 and today postoperative hemoglobin is 12.8. This is an expected and normal finding with no need for transfusion or any other interventions at this time. No need to repeat CBC as patient is not having any signs of active bleeding. Sodium 134. May continue with gentle IV fluid hydration with 0.9% normal saline at 75 mL's per hour for an additional 24 hours and discontinue tomorrow morning. Hypothyroidism -Patient to continue daily medication regimen with levothyroxine 125 g daily. Status post L4 through L5 and L5 through S1 posterior lateral and interbody fusion with laminectomy and decompression with cage placement -Management per primary admitting orthospine surgery team including wound/ drain/dressing care, DVT prophylaxis, pain management, activity advancement, and PT/OT. Data reviewed: Morning labs reviewed. CBC showing leukocytosis with WBC count of 11.2 and normocytic anemia with hemoglobin of 12.8. BMP revealing sodium of 134 and glucose of 113. Liver profile showed elevated AST of 63 otherwise normal findings. Magnesium was normal findings at 2.1. Vital signs reviewed. Blood pressure 154/89, heart rate 78, respiratory rate 16, temp 97.8F, SpO2 of 94% on room air. Thank you for allowing us to participate in the care of this pleasant patient. Do not hesitate to contact us with questions. Someone can be reached from the [facility] hospitalist group all hours of the day at [phone] or via [employer]. Patient was seen independently by Nurse Pracitioner. This document was prepared using [employer] dictation software. Please allow for errors in aviation survival technician, while rare they do occur. Jeremie Art NP rendered care for this patient independently, reviewed the findings and plan as documented in the note above. I did not physically speak with or examine the patient on this date. Objective - Vital Signs Vital signs: Vital Signs Temp 97.8 F 09/04/23 06:59 Pulse 78 09/04/23 06:59 Resp 16 09/04/23 06:59 BP 154/89 09/04/23 06:59 Pulse Ox 94 L 09/04/23 06:59 FiO2 Intake & Output 09/03/23 09/04/23 09/04/23 18:59 06:59 18:59 Output Total 1050 1910 650 Balance -1050 -1910 -650 Output: Drainage 50 Back 50 Urine 1000 1910 650 Other: Voiding Method Urinal - Labs CBC & Chem 7: 09/04/23 06:45 09/04/23 06:45 Labs: Abnormal Lab Results - Last 24 Hours (Table) 09/04/23 09/04/23 Range/Units 06:45 06:45 WBC 11.2 H (3.8-10.6) k/uL RBC 4.25 L (4.30-5.90) m/uL Hgb 12.8 L (13.0-17.5) gm/dL Hct 36.6 L (39.0-53.0) % Sodium 134 L (137-145) mmol/L Glucose 113 H (74-99) mg/dL AST 63 H (17-59) U/L
--- NOTE | 2023-09-04 14:11 | P.PN ---
Subjective Progress Note Date: 09/04/23 Principal diagnosis: 1. Grade I spondylolisthesis of L4 on L5 2.L4-5 stenosis with spondylosis 3. Neurogenic claudication 4. Low back pain Patient seen and examined this morning. Patient is sitting up in chair at bedside. He does report moderate low back pain that radiates into the bilateral thighs. Patient states he is continuing to have low back spasms. Medications have been adjusted. Surgical incision to the lumbar spine, edges are well approximated with geovanna intact. No active drainage. Hemovac drain has been removed and new surgical dressing applied. Patient does report some difficulty with weakness and stiffness when attempting to ambulate throughout the room with a walker. Prescription for LSO brace remains in chart. Continue to encourage patient to reposition every few hours. Patient looking forward to working with physical therapy tomorrow, he is concerned about his stairs at home. Informed patient that physical therapy will evaluate him tomorrow. No acute concerns at this time. Objective - Vital Signs Vital signs: Vital Signs Temp 97.8 F 09/04/23 06:59 Pulse 78 09/04/23 06:59 Resp 16 09/04/23 06:59 BP 154/89 09/04/23 06:59 Pulse Ox 94 L 09/04/23 06:59 FiO2 Intake & Output 09/03/23 09/04/23 09/04/23 18:59 06:59 18:59 Output Total 1050 1910 650 Balance -1050 -1910 -650 Output: Drainage 50 Back 50 Urine 1000 1910 650 Other: Voiding Method Urinal - Exam Physical Examination General: The patient is awake and alert, in no acute distress Skin: Skin is warm and dry with no obvious rashes or lesions. Surgical incision to the lumbar spine, Edges are well approximated with geovanna intact. No active drainage. Hemovac drain has been removed and new dressing applied. Eye: Pupils are equal, round and reactive to light, extra-ocular movements are intact; there is normal conjunctiva bilaterally. Neck: The neck is supple, there is no tenderness and ROM intact. Cardiovascular: There is a regular rate and rhythm. No murmur, rub or gallop is appreciated. Respiratory: Lungs are clear to auscultation, respirations are non-labored, breath sounds are equal. Gastrointestinal: Soft, non-distended, non-tender abdomen. Back: There is no tenderness to palpation in the midline, paralumbar, parathoracic or buttocks region. There is no obvious deformity . Musculoskeletal: ROM limited secondary to pain and stiffness from surgical procedure. Muscle strength in all major muscle groups of bilateral upper extremities 5/5, bilateral lower extremities 4/5. Neurological: CN 2-12 intact. There are no obvious motor or sensory deficits. Movement and coordination equal and intact. Sensory exam to light touch intact C5-T1 and intact from L2-S1. Reflexes 2/4 in bilateral upper and lower extremities. Negative Hoffmans, babinski, and clonus signs. Psychiatric: Cooperative, appropriate mood & affect, normal judgment. - Labs CBC & Chem 7: 09/04/23 06:45 09/04/23 06:45 Labs: Abnormal Lab Results - Last 24 Hours (Table) 09/04/23 09/04/23 Range/Units 06:45 06:45 WBC 11.2 H (3.8-10.6) k/uL RBC 4.25 L (4.30-5.90) m/uL Hgb 12.8 L (13.0-17.5) gm/dL Hct 36.6 L (39.0-53.0) % Sodium 134 L (137-145) mmol/L Glucose 113 H (74-99) mg/dL AST 63 H (17-59) U/L Assessment and Plan Assessment: Postop day 2: L4-S1 decompression and fusion 1. Grade I spondylolisthesis of L4 on L5 2.L4-5 stenosis with spondylosis 3. Neurogenic claudication 4. Low back pain Plan: -Appreciate senior recruitment consultant and team management. -Activity: Ambulate QID, OOB all meals, up and about, limit lifting bending twisting to less than 5 lbs. Use walker or cane if needed for stability. -Daily PT/OT, increase ambulation strength and balance. -Brace when up and about, not needed in bed or chair -LSO brace prescription remains in chart, patient does not need to work with physical therapy today. -Pain control: Adequate at this time -Meds: reviewed -GI ppx: senna, Miralax -DVT PPX: heparin -Hygiene: Shower today. Maintain dressing clean and dry. Meticulous cleaning after BMs away from the incision site -Encourage IS 10x/hr -Dispo: Anticipate discharge home in the next 48 hours with homecare *I reviewed and discussed this case with my attending Dr. Toro, whom has reviewed this chart and films and is in agreement with assessment and plan of care as outlined above. I have personally seen and examined the patient, performed the documentation and the assessment and plan as written. Number of minutes spent on the visit: 20m.
[2023-09-04] MEDS: MAGNESIUM HYDROXIDE 2,400 MG/30 ML CUP PO PRN (16:19)
[2023-09-04] MEDS: CYCLOBENZAPRINE 10 MG TAB PO PRN (17:05)
[2023-09-04] MEDS: SODIUM CHLORIDE 0.9% 1,000 ML IV SCH (19:29)
[2023-09-04] MEDS: HYDROcodone/APAP 10-325MG 1 EACH TAB PO PRN (20:01)
[2023-09-05] MEDS: CYCLOBENZAPRINE 10 MG TAB PO PRN ×3 (04:00→20:56)
[2023-09-05] MEDS: MAGNESIUM HYDROXIDE 2,400 MG/30 ML CUP PO PRN ×2 (04:02→21:03)
[2023-09-05] MEDS: HYDROcodone/APAP 10-325MG 1 EACH TAB PO PRN ×2 (05:57→13:05)
[2023-09-05] MEDS: LEVOTHYROXINE 125 MCG TAB PO SCH (05:58)
[2023-09-05] MEDS: SENNOSIDES-DOCUSATE SODIUM 1 EACH TAB PO SCH (09:02)
--- NOTE | 2023-09-05 13:41 | P.PN ---
Subjective Progress Note Date: 09/05/23 Principal diagnosis: status post L4-S1 decompression fusion Patient was evaluated today at bedside, his resting his hospital chair. We are still waiting for the also brace to be delivered. He has been up and ambulating, he states he noticed improvement. He does feel a bit stronger legs compared to the weekend. He is looking forward to working with physical therapy today. He is passing gas, he has not had a bowel movement at this time. He is urinating with no issues. He denies headaches, lightheadedness, chest pain or shortness of breath Objective - Vital Signs Vital signs: Vital Signs Temp 98.0 F 09/05/23 07:21 Pulse 79 09/05/23 07:21 Resp 18 09/05/23 07:21 BP 152/94 09/05/23 07:21 Pulse Ox 95 09/05/23 07:21 FiO2 Intake & Output 09/04/23 09/05/23 09/05/23 18:59 06:59 18:59 Output Total 2150 700 Balance -2150 -700 Output: Urine 2150 700 Other: Voiding Method Urinal - Exam Gen: AOx3, NAD VSS stable at this time Integument: Postoperative bandages in good position and condition, no obvious drainage Palpation: Mild tenderness on palpation noted to the lower lumbar spine ROM: Full range of motion in all major muscles of bilateral upper and lower extremity is, no focal deficits Sensory Exam: Senory exam to light touch is intact C5-T1 Senosry exam to light touch is intact L2-S1 Motor: 5/5 strength appreciated in the bilateral upper extremities with shoulder elevation, shoulder abduction, wrist extension, wrist flexion, elbow extension, elbow flexion, information technology intern 4/5 in the lower extremities with hip flexion, knee extension, knee flexion, plantar flexion, dorsiflexion, EHL, FHL Reflexes: 2/4 in all UE and LE Negative Andrew's, Babinski, clonus bilaterally - Labs CBC & Chem 7: 09/04/23 06:45 09/04/23 06:45 Assessment and Plan Assessment: Postoperative day #3 status post L4-S1 compression and fusion Plan: Pain control, discussed patient we will try to decrease some of the [place] at this time. We'll utilize [place]ayer 7.5 mg/325 mg, continue Flexeril. Patient has multiple stool softeners also, did discuss with nursing to continue using these daily DVT prophylaxis, continue subcu medication LSO brace prescription still remains in chart, discussed with nursing and case management regarding this. Patient does not knee brace for shorter distance walking, he needs to have it on for long distance walking. Weight-bear as tolerated, use walker at all times Medical recommendations appreciated Discharge planning: Hopeful discharge to home tomorrow 09/06/2023 Time with Patient: Less than 30
[2023-09-05] MEDS ORDERED: HYDROcodone/APAP 10-325MG 1 EACH TAB PO PRN (13:42)
[2023-09-05] MEDS: HEPARIN SODIUM,PORCINE 5,000 UNIT/ML 1 ML VIAL SQ SCH ×2 (14:35→20:56)
--- NOTE | 2023-09-05 15:33 | P.PN ---
Subjective Progress Note Date: 09/05/23 Hospital course: Patient is a very pleasant 52-year-old male with a past medical history of hypothyroidism, vertigo, chronic neck pain status post cervical fusion, and osteoarthritis. Patient is currently admitted under orthospine surgical team status post L4 through L5 and L5 through S1 posterior lateral and interbody fusion with laminectomy and decompression and cage placement. We are consulted for medical management throughout patient's hospitalization. Physical exam: Patient seen and fully evaluated at bedside this morning. Patient is postop day 3.. He was sitting up in a recliner chair at bedside again this morning. Patient reports he is moving a little more independently than he was previously and feels as though he is getting stronger day by day. He continues to deny having any numbness/tingling/weakness in his extremities and reports normal urination. Patient reports that he has not yet had a bowel movement since surgery but is tolerating oral intake without any nausea or vomiting and passing flatus. Vital signs reviewed and stable. General: Nontoxic, no distress and appears stated age. Derm: Skin warm and dry, normal coloration for ethnicity. Head: Atraumatic, normocephalic and symmetric. Eyes: EOMs intact, no lid lag, and anicteric sclera Mouth: no lip lesions, mucus membranes moist Cardiovascular: regular rate and rhythm with normal S1S2, no murmur, positive posterior tibial pulses bilaterally, and cap refill < 2 seconds. Lungs: Respirations even, regular, and unlabored on room air. Lungs CTA bilaterally, no rhonchi, no rales, no wheezing, and no accessory muscle usage. Abdominal: soft, nontender to palpation, no guarding, no appreciable organomegaly Ext: ROM intact. No gross muscle atrophy, no edema, no contractures Neuro: Speech clear, face symmetrical and CN II-XII grossly intact with no noted focal neuro deficits Psych: Alert and oriented to person, place, time, and situation. Appropriate and pleasant affect. Assessment and Plan of Care: Acute postoperative blood loss anemia Leukocytosis, reactive secondary to surgical procedure Hyponatremia, improving -Acute postoperative blood loss anemia with preoperative hemoglobin 14.7 on 08/29/23 and today postoperative hemoglobin is 12.8. This is an expected and normal finding with no need for transfusion or any other interventions at this time. No need to repeat CBC as patient is not having any signs of active bleed ing. Sodium 134. May continue with gentle IV fluid hydration with 0.9% normal saline at 75 mL's per hour for an additional 24 hours and discontinue tomorrow morning. Hypothyroidism -Patient to continue daily medication regimen with levothyroxine 125 g daily. Status post L4 through L5 and L5 through S1 posterior lateral and interbody fusion with laminectomy and decompression with cage placement -Management per primary admitting orthospine surgery team including wound/drain/dressing care, DVT prophylaxis, pain management, activity advancement, and PT/OT. Data reviewed: Vital signs reviewed. Blood pressure 152/94, heart rate 79, respiratory rate 18, temp 98.0F, SpO2 of 95% on room air. Medically, patient is optimized for discharge once cleared by primary admitting orthospine surgery team. Thank you for allowing us to participate in the care of this pleasant patient. Do not hesitate to contact us with questions. Someone can be reached from the [facility] group all hours of the day at [phone] or via [employer]. Patient was seen independently by Nurse Pracitioner. This document was prepared using [employer] dictation software. Please allow for errors in oven laborer, while rare they do occur. Jeremie Art NP rendered care for this patient independently, reviewed the findings and plan as documented in the note above. I did not physically speak with or examine the patient on this date. Objective - Vital Signs Vital signs: Vital Signs Temp 98.0 F 09/05/23 07:21 Pulse 79 09/05/23 07:21 Resp 18 09/05/23 07:21 BP 152/94 09/05/23 07:21 Pulse Ox 95 09/05/23 07:21 FiO2 Intake & Output 09/04/23 09/05/23 09/05/23 18:59 06:59 18:59 Output Total 2150 700 Balance -2150 -700 Output: Urine 2150 700 Other: Voiding Method Urinal - Labs CBC & Chem 7: 09/04/23 06:45 09/04/23 06:45
[2023-09-05] MEDS: HYDROcodone/APAP 7.5-325MG 1 EACH TAB PO PRN ×2 (18:40→23:02)
[2023-09-06] MEDS: HYDROmorphone 1 MG/ML 1 ML SYRINGE IVP PRN (02:32)
[2023-09-06] MEDS: LEVOTHYROXINE 125 MCG TAB PO SCH (05:43)
[2023-09-06] MEDS: HYDROcodone/APAP 7.5-325MG 1 EACH TAB PO PRN (05:43)
[2023-09-06] MEDS: HEPARIN SODIUM,PORCINE 5,000 UNIT/ML 1 ML VIAL SQ SCH (07:36)
[2023-09-06] MEDS: SENNOSIDES-DOCUSATE SODIUM 1 EACH TAB PO SCH (07:36)
--- NOTE | 2023-09-06 11:14 | P.PN ---
Subjective Progress Note Date: 09/06/23 Principal diagnosis: status post L4-S1 decompression fusion Patient was evaluated today at bedside, his resting his hospital chair. Patient was fitted for his also brace. Patient actually feels more comfortable when ambulating with brace. He continues to have some constipation, medicine has ordered additional medication for this. He denies headaches, lightheadedness, chest pain or shortness of breath Objective - Vital Signs Vital signs: Vital Signs Temp 98.4 F 09/06/23 07:00 Pulse 74 09/06/23 07:00 Resp 18 09/06/23 07:00 BP 155/96 09/06/23 07:00 Pulse Ox 96 09/06/23 07:00 FiO2 Intake & Output 09/05/23 09/06/23 09/06/23 18:59 06:59 18:59 Other: # Voids 3 - Exam Gen: AOx3, NAD VSS stable at this time Integument: Postoperative bandages in good position and condition, no obvious drainage Palpation: Mild tenderness on palpation noted to the lower lumbar spine ROM: Full range of motion in all major muscles of bilateral upper and lower extremity is, no focal deficits Sensory Exam: Senory exam to light touch is intact C5-T1 Senosry exam to light touch is intact L2-S1 Motor: 5/5 strength appreciated in the bilateral upper extremities with shoulder elevation, shoulder abduction, wrist extension, wrist flexion, elbow extension, elbow flexion, ethnographic materials conservator 4/5 in the lower extremities with hip flexion, knee extension, knee flexion, plantar flexion, dorsiflexion, EHL, FHL Reflexes: 2/4 in all UE and LE Negative Andrew's, Babinski, clonus bilaterally - Labs CBC & Chem 7: 09/04/23 06:45 09/04/23 06:45 Assessment and Plan Assessment: Postoperative day #4 status post L4-S1 compression and fusion Plan: Pain control, discussed patient we will try to decrease some of the [place] at this time. We'll utilize [place] 7.5 mg/325 mg, continue Flexeril. Patient has multiple stool softeners also, did discuss with nursing to continue using these daily DVT prophylaxis, continue subcu medication Continue LSO brace when up and ambulating Weight-bear as tolerated, use walker at all times Medical recommendations appreciated Discharge planning: We'll reassess later this afternoon, hopeful discharged home today Time with Patient: Less than 30
[2023-09-06] MEDS ORDERED: MAGNESIUM CITRATE 296 ML BOTTLE PO ONE (11:45)
--- NOTE | 2023-09-06 11:49 | P.PN ---
Subjective Progress Note Date: 09/06/23 Hospital course: Patient is a very pleasant 52-year-old male with a past medical history of hypothyroidism, vertigo, chronic neck pain status post cervical fusion, and osteoarthritis. Patient is currently admitted under orthospine surgical team status post L4 through L5 and L5 through S1 posterior lateral and interbody fusion with laminectomy and decompression and cage placement. We are consulted for medical management throughout patient's hospitalization. Physical exam: Patient seen and fully evaluated at bedside this morning. Patient is postop day 4.. He was sitting up in a recliner chair at bedside again this morning. Patient has brace in place and reports he believes this helps him and he is moving much better than he was yesterday. He does report persistent postoperative constipation. Orders place for magnesium citrate. Patient otherwise denies having any complaints, needs, or concerns at this time. Vital signs reviewed and stable. General: Nontoxic, no distress and appears stated age. Derm: Skin warm and dry, normal coloration for ethnicity. Head: Atraumatic, normocephalic and symmetric. Eyes: EOMs intact, no lid lag, and anicteric sclera Mouth: no lip lesions, mucus membranes moist Cardiovascular: regular rate and rhythm with normal S1S2, no murmur, positive posterior tibial pulses bilaterally, and cap refill < 2 seconds. Lungs: Respirations even, regular, and unlabored on room air. Lungs CTA bilaterally, no rhonchi, no rales, no wheezing, and no accessory muscle usage. Abdominal: soft, nontender to palpation, no guarding, no appreciable organomegaly Ext: ROM intact. No gross muscle atrophy, no edema, no contractures Neuro: Speech clear, face symmetrical and CN II-XII grossly intact with no noted focal neuro deficits Psych: Alert and oriented to person, place, time, and situation. Appropriate and pleasant affect. Assessment and Plan of Care: Acute postoperative blood loss anemia Leukocytosis, reactive secondary to surgical procedure Hyponatremia, improving -Acute postoperative blood loss anemia with preoperative hemoglobin 14.7 on 08/29/23 and today postoperative hemoglobin is 12.8. This is an expected and normal finding with no need for transfusion or any other interventions at this time. No need to repeat CBC as patient is not having any signs of active bleeding. Sodium 134. May continue with gentle IV fluid hydration with 0.9% normal saline at 75 mL's per hour for an additional 24 hours and discontinue tomorrow morning. Constipation Continue bowel regimen and added on magnesium citrate 296 mL by mouth 1 dose. Hypothyroidism -Patient to continue daily medication regimen with levothyroxine 125 g daily. Status post L4 through L5 and L5 through S1 posterior lateral and interbody fusion with laminectomy and decompression with cage placement -Management per primary admitting orthospine surgery team including wound/drain/dressing care, DVT prophylaxis, pain management, activity advancement, and PT/OT. Data reviewed: Vital signs reviewed. Blood pressure 155/96, heart rate 74, respiratory rate 18, temp 98.4F, SpO2 of 96% on room air. Medically, once patient has a bowel movement he is optimized for discharge once cleared by primary admitting orthospine surgery team. Thank you for allowing us to participate in the care of this pleasant patient. Do not hesitate to contact us with questions. Someone can be reached from the [facility] group all hours of the day at [phone] or via perfect serve. Patient was seen independently by Nurse Pracitioner. This document was prepared using [employer] dictation software. Please allow for errors in black pickler, while rare they do occur. Objective - Vital Signs Vital signs: Vital Signs Temp 98 F 09/06/23 01:20 Pulse 84 09/06/23 01:20 Resp 18 09/06/23 01:20 BP 132/90 09/06/23 01:20 Pulse Ox 94 L 09/06/23 01:20 FiO2 Intake & Output 09/05/23 09/06/23 09/06/23 18:59 06:59 18:59 Other: # Voids 3 - Labs CBC & Chem 7: 09/04/23 06:45 09/04/23 06:45
[2023-09-06 14:29] VITALS: BP 150/95; PULSE 92; RESP 15; TEMP 97.1
[2023-09-06] MEDS: CYCLOBENZAPRINE 10 MG TAB PO PRN (14:33)
== END 2023-09-06 15:56 | disposition home health service (06) ==
LOC: OR 10:37 → 4SSUR 15:41
PROVIDERS: ADMIT Orthopaedic Surgery; ATTEND Orthopaedic Surgery
DX: M47.816 Spondylosis without myelopathy or radiculopathy, lumbar region (principal); M43.16 Spondylolisthesis, lumbar region; M47.817 Spondylosis without myelopathy or radiculopathy, lumbosacral region; M48.07 Spinal stenosis, lumbosacral region; M48.062 Spinal stenosis, lumbar region with neurogenic claudication; D62 Acute posthemorrhagic anemia; E03.9 Hypothyroidism, unspecified; M54.2 Cervicalgia; E87.1 Hypo-osmolality and hyponatremia; E86.0 Dehydration; D72.829 Elevated white blood cell count, unspecified; K59.00 Constipation, unspecified; Z56.0 Unemployment, unspecified; Z87.891 Personal history of nicotine dependence; Z79.890 Hormone replacement therapy
CPT/HCPCS: 63052; 63053; 22842; 22853 ×2; 20931; 20936; 96376 ×3; 96361; 96365; 96366 ×2; 96372 ×2; 96375; 97116; 97161; 80048; 85025; 72100; 72131; 22633; 22634; G0378 ×5; C1713; C1734; J2250; J3370; J0330; J0360; J1580; J1644 ×2; J2710; J0690 ×3; J2405; J2001; J3010; J1170 ×4; J0131; J2704

== ENCOUNTER → 2024-06-28 | Outpatient (CLI) | payer OTHER ==
[2024-06-29 03:02] LABS: ALT 25 U/L (10-49); AST 19 U/L (14-35); Albumin 4.9 g/dL (3.8-4.9); Albumin/Globulin Ratio 2.04 Ratio (1.60-3.17); Alkaline Phosphatase 57 U/L (41-126); Blood Urea Nitrogen 12.7 mg/dL (9.0-27.0); Calcium 9.7 mg/dL (8.7-10.3); Carbon Dioxide 25.6 mmol/L (21.6-31.8); Chloride 106 mmol/L (96-109); Globulin 2.4 g/dL (1.6-3.3); Glucose 86 mg/dL (70-110); Potassium 4.6 mmol/L (3.5-5.5); Sodium 143 mmol/L (135-145); Total Bilirubin 0.2 mg/dL (0.3-1.2); Total Protein 7.3 g/dL (6.2-8.2)
== END | disposition home or self-care (01) ==
LOC: LABWHC1 15:58
PROVIDERS: ATTEND Nurse Practitioner Family
DX: E03.9 Hypothyroidism, unspecified (principal)
CPT/HCPCS: 36415; 80053; 84443

== ENCOUNTER → 2024-08-20 | Outpatient (CLI) | payer MEDICARE ==
--- NOTE | 2024-08-20 18:08 | CT ---
EXAMINATION TYPE: CT cervical spine wo con DATE OF EXAM: 08/20/2024 5:31 PM COMPARISON: Plain film radiographs 08/14/2024. 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 hx of c-spine surgery. TECHNIQUE: Axial CT images from the skull base to the inferior aspect of T2 we obtained without intra venous contrast. Coronal and sagittal reformatted images were also reviewed. Contrast used: mL of , (if blank None) Oral contrast used: (if blank None) CT DLP: 629.9 mGycm, Automated exposure control for dose reduction was used. FINDINGS: Fracture: None. Osseous structures: Multilevel degeneration changes throughout the spine. There is fixation hardware at C3-C7. Hardware appears intact. Vertebral alignment: Alignment within normal limits. Spinal canal/Neural Foramina: No evidence of significant spinal canal narrowing. Scattered facet and uncovertebral joint arthropathy with mild/moderate neural foraminal stenosis throughout the spine. Fi ndings worse at C4-C5 with mild to moderate stenosis. Neck soft tissues: Prevertebral soft tissues are within normal limits. Other: The airway is patent. The lung apices are clear. IMPRESSION: 1. No evidence of cervical spine fracture. 2. Moderate degeneration changes throughout the spine. 3. Fixation hardware throughout the cervical spine appears intact. [facility], , 08/20/2024 6:05 PM
== END | disposition home or self-care (01) ==
LOC: RADCTMAIN 17:12
PROVIDERS: ATTEND Orthopaedic Surgery
CPT/HCPCS: 72125